=== PATIENT | male | born 1990 | race American Indian/Alaskan Native ===

== ENCOUNTER 2017-03-09 07:27 | Inpatient (IN) | payer OTHER ==
--- NOTE | 2017-03-09 08:05 | XRay Report ---
AP CHEST: HISTORY: Shortness of breath Borderline to mild cardiomegaly and mild central pulmonary venous congestion are suspected. The lungs are clear. No evidence for pneumonia, CHF or pneumothorax. The thoracic cage is intact. IMPRESSION: Borderline to mild cardiomegaly and pulmonary venous congestion.
[2017-03-09 08:07] LABS: Basophils % (Auto) 0.8 % (0.0-1.8); Eosinophils % (Auto) 1.4 % (0.0-4.3); Hematocrit 37.8 % (35.5-45.6); Hemoglobin 12.4 gm/dl (11.8-15.2); Mean Corpuscular HGB Conc 33 % (32-34); Mean Corpuscular Hemoglobin 26 pg (28-32); Mean Corpuscular Volume 80 fl (84-94); Platelet Count 167 K/mm3 (140-440); Red Blood Count 4.75 M/mm3 (3.65-5.03); Red Cell Distribution Width 16.1 % (13.2-15.2); White Blood Count 6.3 K/mm3 (4.5-11.0)
[2017-03-09] MEDS ORDERED: NORMODYNE IV ONE (08:18)
[2017-03-09 08:26] LABS: BUN/Creatinine Ratio 10.31; Calcium 8.3 mg/dL (8.4-10.2); Chloride 108.2 mmol/L (98-107); Potassium 4.6 mmol/L (3.6-5.0)
--- NOTE | 2017-03-09 08:38 | Emergency Department Report ---
HPI - General Chief Complaint: Dyspnea/Respdistress Time Seen by Provider: 03/09/17 08:23 - HPI HPI: Room 17 The patient is a 26-year-old male presenting with a chief complaint of shortness of breath. The patient states he developed shortness of breath at rest and with exertion yesterday. The patient states shortness of breath has been persistent. Patient admits to occasional cough that is occasionally productive of white sputum. His pain or fever. The patient states he has not had any of this medication for the past 4 days. Patient states she has not been on a diuretic for the past 4 years. Location: Lungs Duration: 2 days Quality: Shortness of Breath Severity: Moderate Modifying factors: [see above] Context: [see above] Mode of transportation: [not driving] ED Past Medical Hx - Past Medical History Hx Hypertension: Yes Hx Congestive Heart Failure: Yes Hx Diabetes: Yes - Surgical History Past Surgical History?: No - Family History Family history: no significant - Social History Smoking Status: Former Smoker (none 2 years) Substance Use Type: None (denies illicit drug use), Alcohol (occasional) - Medications Home Medications: Home Medications Medication Instructions Recorded Confirmed Last Taken Type Aspirin EC [Aspirin Enteric Coated 81 mg PO QDAY #30 tablet. 11/16/1303/08/17 08:00 Rx TAB] ED Review of Systems ROS: Stated complaint: CORAZON Other details as noted in HPI Comment: All other systems reviewed and negative Constitutional: denies: chills, fever Eyes: denies: eye pain, eye discharge, vision change ENT: denies: ear pain, throat pain Respiratory: cough, shortness of breath, SOB with exertion Cardiovascular: dyspnea on exertion. denies: chest pain Endocrine: no symptoms reported Gastrointestinal: denies: abdominal pain, nausea, diarrhea Genitourinary: denies: urgency, dysuria Musculoskeletal: denies: back pain, joint swelling, arthralgia Skin: denies: rash, lesions Neurological: denies: headache, weakness, paresthesias Psychiatric: denies: anxiety, depression Hematological/Lymphatic: denies: easy bleeding, easy bruising Physical Exam - Physical Exam Vital Signs: Vital Signs 03/09/17 03/09/17 03/09/17 07:33 07:34 07:45 Temperature 97.6 F Pulse Rate 88 86 84 Respiratory 28 H 18 24 Rate Blood Pressure 223/150 Blood Pressure 223/150 [Left] O2 Sat by Pulse 92 96 95 Oximetry 03/09/17 03/09/17 03/09/17 08:00 08:13 08:16 Temperature Pulse Rate 84 86 Respiratory 27 H Rate Blood Pressure 205/156 Blood Pressure 200/139 [Left] O2 Sat by Pulse 96 Oximetry Physical Exam: GENERAL: The patient is well-developed well-nourished male sitting on stretcher not appearing to be in acute distress. [] HEENT: Normocephalic. Atraumatic. Extraocular motions are intact. Patient has moist mucous membranes. NECK: Supple. Regular midline CHEST/LUNGS: Clear to auscultation. There is no respiratory distress noted. HEART/CARDIOVASCULAR: Regular. There is no tachycardia. There is no gallop rub or murmur. ABDOMEN: Abdomen is soft, nontender. Patient has normal bowel sounds. There is no abdominal distention. SKIN: There is no rash. There is trace bilateral lower extremity pitting edema. There is no diaphoresis. NEURO: The patient is awake, alert, and oriented. The patient is cooperative. The patient has normal speech MUSCULOSKELETAL: There is no evidence of acute injury. ED Course Vital Signs 03/09/17 03/09/17 03/09/17 07:33 07:34 07:45 Temperature 97.6 F Pulse Rate 88 86 84 Respiratory 28 H 18 24 Rate Blood Pressure 223/150 Blood Pressure 223/150 [Left] O2 Sat by Pulse 92 96 95 Oximetry 03/09/17 03/09/17 03/09/17 08:00 08:13 08:16 Temperature Pulse Rate 84 86 Respiratory 27 H Rate Blood Pressure 205/156 Blood Pressure 200/139 [Left] O2 Sat by Pulse 96 Oximetry ED Medical Decision Making - Lab Data Result diagrams: 03/09/17 07:56 03/09/17 07:56 Laboratory Tests 03/09/17 03/09/17 07:56 07:56 WBC 6.3 RBC 4.75 Hgb 12.4 Hct 37.8 MCV 80 L MCH 26 L MCHC 33 RDW 16.1 H Plt Count 167 Lymph % (Auto) 14.8 [place] % (Auto) 7.3 Eos % (Auto) 1.4 Baso % (Auto) 0.8 Lymph # 0.9 L [place] # 0.5 Eos # 0.1 Baso # 0.0 Seg Neutrophils % 75.7 H Seg Neutrophils # 4.8 Sodium 144 Potassium 4.6 Chloride 108.2 H Carbon Dioxide 22 Anion Gap 18 BUN 33 H Creatinine 3.2 H Estimated GFR 28 BUN/Creatinine Ratio 10.31 Glucose 180 H Calcium 8.3 L Troponin T 0.019 - EKG Data -: EKG Interpreted by Me EKG shows normal: sinus rhythm Rate: normal - EKG Data When compared to previous EKG there are: no significant change Interpretation: unchanged when compared t (11/14/2013), nonspecific ST-T wave kristen - Radiology Data Radiology results: image reviewed (chest x-ray) interpreted by me: Chest [id number]. No focal infiltrate, no pneumothorax - Differential Diagnosis CHF exacerbation, hypertensive urgency, pneumonia Critical care attestation.: If time is entered above; I have spent that time in minutes in the direct care of this critically ill patient, excluding procedure time. ED Disposition Clinical Impression: Acute exacerbation of CHF (congestive heart failure), Hypertensive urgency, Acute renal failure Disposition: 09 OP ADMIT IP TO THIS HOSP Is pt being admited?: Yes Does the pt Need Aspirin: No (renal failure) Condition: Serious Time of Disposition: 08:38 (hospitalist paged)
--- NOTE | 2017-03-09 08:44 | Admit Criteria Form ---
Admission Criteria Documentation: HEART FAILURE: COMMON COMPLICATIONS Clinical Indications for Inpatient Care ([place]/check or initial the applicable condition/criteria): Ongoing inpatient care may be indicated for heart failure with 1 or more of the following (1)(2)(3)(4)(5)(6)(7)(8): [ ]I. New-onset heart failure [ ]II. Acute cardiac ischemia causing or associated with failure [ ]III. Ongoing need for care for primary condition requiring frequent therapy adjustments because of changes in cardiac function (eg, drug dosage changes for drugs that are renally metabolized) [X]IV. Complications of heart failure, including 1 or more of the following: [ ]a) Hemodynamic instability [ ]b) Pericardial effusion [ ]c) Symptomatic pleural effusion(16) [ ]d) Hypoxemia [ ]e) Tachypnea [X]f) Dyspnea [ ]g) Syncope [ ]h) Altered mental status [ ]i) Acute renal insufficiency that is severe (reduction of more than 50% in estimated glomerular filtration rate from baseline) or progressive (reduction of more than 25% in estimated glomerular filtration rate from baseline, with creatinine continuing to rise) [ ]j) Debilitating anasarca (eg tissue breakdown with infection, inability to void due to edema)(E) (17) [ ]k) Clinically significant metabolic abnormalities due to heart failure (e.g., new-onset metabolic acidosis) Extended stay may be needed until ALL of the following are present(1)(3)(18)(41) (55): [ ]a) Hemodynamic stability [ ]b) Stable and effective diuretic regimen established (or patient on stable dialysis regimen if in chronic renal failure) [ ]c) Volume status acceptable on oral medication [ ]d) Breathing comfortably at rest [ ]e) Saturation of arterial oxygen greater than 90% or at acceptable baseline [ ]f) Pulmonary edema absent or improved [ ]g) Peripheral or sacral edema absent or improved [ ]h) Renal function stable and manageable at a lower level of care [ ]i) Complications (e.g., pleural effusion) resolved or manageable at a lower level of care [ ]j) Patient or caregiver has received written discharge instructions or educational material addressing activity level, diet, discharge medications, follow-up appointment, weight monitoring, and what to do if symptoms worsen. (56)(57)(58) The original [facility] content created by Guru Mcmahon has been revised. The portions of the content which have been revised are identified through the use of italic text or in bold, and Guru Mcmahon has neither reviewed nor approved the modified material.All other unmodified content is copyright [facility] [employer]. Please see references footnoted in the original [facility] edition 2017 Admission Criteria Met: Yes
[2017-03-09] MEDS ORDERED: DULCOLAX PR PRN (09:15)
[2017-03-09] MEDS ORDERED: TYLENOL PO PRN (09:15)
--- NOTE | 2017-03-09 09:22 | History and Physical Report ---
<PAWEL WINTER - Last Filed: 03/09/17 14:55> History of Present Illness Date of examination: 03/09/17 Date of admission: 03/09/2017 Chief complaint: Shortness of breath and productive cough History of present illness: Patient is 26 years old -[place] with past medical history systolic congestive heart failure, hypertension and diabetes mellitus type 2, who presents to the emergency department for complaining of shortness of breath with 2 days of of worsening dyspnea on light exertion and productive cough, and a 10 lb weight gain in 5 days. He has been off of his heart failure medicines for the past 4 days because he ran out off his meds. He was busy with his job and did not get time to refill his medications. Just over 1 week ago the patient was at his normal baseline state of health. Now he has had progressive worsening of his dyspnea on exertion (MONTES) to where he cannot walk across a room or talk while sitting up without becoming short of breath. He says the quality of his breathing is just like suffocating but he denies burning in his lungs or other feelings. Additionally, he has a productive cough with whitish mucus that is not bloody or bilious. He felt like he could not catch his breath this morning and got worried so he came to the ED. He continues to have 2 -3 pillow orthopnea and peripheral edema. He denies chest pain, abdominal distention, nausea or vomiting. Past History Past Medical History: diabetes (Type 2), heart failure, hypertension Past Surgical History: No surgical history Social history: denies: smoking, alcohol abuse Family history: CAD, hypertension, stroke Medications and Allergies Allergies Allergy/AdvReac Type Severity Reaction Status Date / Time lisinopril Allergy Rash Verified 03/09/17 07:34 Home Medications Medication Instructions Recorded Confirmed Last Taken Type Aspirin EC [Aspirin Enteric Coated 81 mg PO QDAY #30 tablet. 11/16/1303/08/17 08:00 Rx TAB] AtorvaSTATin [Lipitor] 40 mg PO QHS 03/09/17 03/09/17 03/05/17 History 40mg Carvedilol [Coreg] 25 mg PO BID 03/09/17 03/09/17 03/05/17 History glipiZIDE [Glucotrol] 5 mg PO QDAY 03/09/17 03/09/17 03/05/17 History 5mg hydrALAZINE 50 mg PO BID 03/09/17 03/09/17 03/05/17 History Active Meds: Active Medications Acetaminophen (Tylenol) 650 mg PO Q4H PRN PRN Reason: Pain MILD(1-3)/Fever >100.5/KATZ Aspirin (Halfprin Ec) 81 mg PO QDAY JUWAN Bisacodyl (Dulcolax) 10 mg RI QDAY PRN PRN Reason: Constipation unrelieved by MOM Glipizide (Glucotrol) 5 mg PO QDAY FORMER[facility], [facility] Heparin Sodium (Porcine) (Heparin) 5,000 unit SUB-Q Q12HR JUWAN Hydralazine HCl (Apresoline) 10 mg IV Q4HR JUWAN Review of Systems Constitutional: weight gain, no weight loss, no fever, no chills, no sweats Ears, nose, mouth and throat: no ear pain, no ear discharge, no tinnitis, no decreased hearing, no nose pain Cardiovascular: edema, shortness of breath, dyspnea on exertion, paroxysmal nocturnal dyspnea, no orthopnea, no palpitations, no rapid/irregular heart beat , no syncope, no lightheadedness Respiratory: cough, congestion, no cough with sputum, no excessive sputum, no hemoptysis, no shortness of breath Gastrointestinal: no vomiting, no diarrhea, no constipation Genitourinary Male: no dysuria, no hematuria, no flank pain Rectal: no pain, no incontinence Musculoskeletal: no neck pain, no shooting arm pain, no arm numbness/tingling, no low back pain, no shooting leg pain Integumentary: no rash, no pruritis, no redness, no sores Neurological: no paralysis, no weakness, no numbness, no tingling Psychiatric: no anxiety, no memory loss, no change in sleep habits, no insomnia , no change in appetite, no change in libido Endocrine: no cold intolerance, no heat intolerance, no polyphagia, no polydipsia, no excessive sweating Hematologic/Lymphatic: no easy bruising, no easy bleeding Allergic/Immunologic: no urticaria Exam - Constitutional Vitals: Temp Pulse Resp BP Pulse Ox 98.5 F 83 22 194/144 97 03/09/17 08:59 03/09/17 09:17 03/09/17 08:59 03/09/17 09:17 03/09/17 08:59 General appearance: Present: mild distress - EENT Eyes: Present: PERRL ENT: hearing intact - Neck Neck: Present: supple - Respiratory Respiratory effort: normal Respiratory: bilateral: rales, wheezing - Cardiovascular Heart rate: 83 Rhythm: regular - Extremities Extremity abnormal: edema, other (to bilateral extremity) Peripheral Pulses: within normal limits - Abdominal General gastrointestinal: Present: soft, non-tender Male genitourinary: Present: deferred - Rectal Rectal Exam: deferred - Integumentary Integumentary: Present: clear, warm, dry - Musculoskeletal Musculoskeletal: strength equal bilaterally - Psychiatric Psychiatric: appropriate mood/affect - Neurologic Neurologic: CNII-XII intact - Allied Health Allied health notes reviewed: nursing Results - Labs CBC & Chem 7: 03/09/17 07:56 03/09/17 12:32 Labs: Laboratory Last Values WBC 6.3 K/mm3 (4.5-11.0) 03/09/17 07:56 RBC 4.75 M/mm3 (3.65-5.03) 03/09/17 07:56 Hgb 12.4 gm/dl (11.8-15.2) 03/09/17 07:56 Hct 37.8 % (35.5-45.6) 03/09/17 07:56 MCV 80 fl (84-94) L 03/09/17 07:56 MCH 26 pg (28-32) L 03/09/17 07:56 MCHC 33 % (32-34) 03/09/17 07:56 RDW 16.1 % (13.2-15.2) H 03/09/17 07:56 Plt Count 167 K/mm3 (140-440) 03/09/17 07:56 Lymph % (Auto) 14.8 % (13.4-35.0) 03/09/17 07:56 [place] % (Auto) 7.3 % (0.0-7.3) 03/09/17 07:56 Eos % (Auto) 1.4 % (0.0-4.3) 03/09/17 07:56 Baso % (Auto) 0.8 % (0.0-1.8) 03/09/17 07:56 Lymph # 0.9 K/mm3 (1.2-5.4) L 03/09/17 07:56 [place] # 0.5 K/mm3 (0.0-0.8) 03/09/17 07:56 Eos # 0.1 K/mm3 (0.0-0.4) 03/09/17 07:56 Baso # 0.0 K/mm3 (0.0-0.1) 03/09/17 07:56 Seg Neutrophils % 75.7 % (40.0-70.0) H 03/09/17 07:56 Seg Neutrophils # 4.8 K/mm3 (1.8-7.7) 03/09/17 07:56 Sodium 144 mmol/L (137-145) 03/09/17 07:56 Potassium 4.6 mmol/L (3.6-5.0) 03/09/17 07:56 Chloride 108.2 mmol/L (98-107) H 03/09/17 07:56 Carbon Dioxide 22 mmol/L (22-30) 03/09/17 07:56 Anion Gap 18 mmol/L 03/09/17 07:56 BUN 33 mg/dL (9-20) H 03/09/17 07:56 Creatinine 3.2 mg/dL (0.8-1.5) H 03/09/17 07:56 Estimated GFR 28 ml/min 03/09/17 07:56 BUN/Creatinine Ratio 10.31 % 03/09/17 07:56 Glucose 180 mg/dL (75-100) H 03/09/17 07:56 Calcium 8.3 mg/dL (8.4-10.2) L 03/09/17 07:56 Troponin T 0.019 ng/mL (0.00-0.029) 03/09/17 07:56 Assessment and Plan Assessment and plan: ASSESSMENT/PLAN Acute on chronic systolic congestive heart failure We will admit to telemetry Patient has recent Echocardiogram with EF of 40-50% on 11/15/2013 we will leave for Cardiology if they want to obtain another one. No Lasix for now because of poor kidney function Resume beta blockers and CARLOS inhibitor's Strict I/O's and daily weights. Low-sodium/cardiac diet, fluid restriction 1200 ml daily Closely monitor electrolytes Cardiology evaluation Acute kidney injury/vasomotor nephropathy Most likely due to noncompliance with hypertension and CHF medications Bilateral renal ultrasound ordered Don't start IV fluid because of acute CHF Nephrology consulted Uncontrolled diabetes mellitus type 2 We will get A1C level Resume glipizide Accu-Chek before meals and at bedtime Sliding scale insulin/NovoLog ADA consistent carbohydrate diet Hypertension malignant Resume oral antihypertensive pills IV hydralazine for SBP>160 Closely objective blood pressure Hyperlipidemia Resume home antilipid medicine physical exercise to lose weight, low-fat diet, reducing intake of high-fat foods to improve cardiovascular diseases patient agreed up curse of action. Noncompliance Patient name complaints with medication and follow-up visits with physician Counseling done. Morbid obesity with BMI of 37.2 on adult Discussed about physical exercise to lose weight and life style changes. DVT/prophylaxis Heparin Advance Directives: Yes (Full Code) VTE prophylaxis?: Chemical Contraindication Mechanical VTE Prophylaxis: Treatment Not Indicated Plan of care discussed with patient/family: Yes <KIEL ESPINAL - Last Filed: 03/09/17 22:52> History of Present Illness Date of admission: 03/09/17 09:15 Medications and Allergies Active Meds: Active Medications Acetaminophen (Tylenol) 650 mg PO Q4H PRN PRN Reason: Pain MILD(1-3)/Fever >100.5/KATZ Last Admin: 03/09/17 16:23 Dose: 650 mg Albuterol (Proventil) 2.5 mg IH Q4H PRN PRN Reason: Shortness Of Breath Albuterol/Ipratropium (Duoneb *Not For Prn Use*) 1 ampul IH TID FOR[facility], [facility] Last Admin: 03/09/17 19:48 Dose: Not Given Amlodipine Besylate (Norvasc) 10 mg PO QDAY [facility], [facility] Last Admin: 03/09/17 11:56 Dose: 10 mg Aspirin (Halfprin Ec) 81 mg PO QDAY [facility] Last Admin: 03/09/17 10:57 Dose: 81 mg Atorvastatin Calcium (Lipitor) 40 mg PO QHS [facility] Last Admin: 03/09/17 21:47 Dose: 40 mg Bisacodyl (Dulcolax) 10 mg RI QDAY PRN PRN Reason: Constipation unrelieved by MOM Carvedilol (Coreg) 25 mg PO BID [facility] Last Admin: 03/09/17 21:47 Dose: 25 mg Clonidine HCl (Catapres) 0.2 mg PO Q12HR [facility] Dextrose (D50w (25gm)) 50 ml IV PRN PRN PRN Reason: Hypoglycemia Glipizide (Glucotrol) 5 mg PO QDAY [facility] Last Admin: 03/09/17 10:56 Dose: 5 mg Heparin Sodium (Porcine) (Heparin) 5,000 unit SUB-Q Q12HR [facility] Last Admin: 03/09/17 21:48 Dose: 5,000 unit Hydralazine HCl (Apresoline) 50 mg PO TID [facility] Last Admin: 03/09/17 21:47 Dose: 50 mg Hydralazine HCl (Apresoline) 20 mg IV Q4HR PRN PRN Reason: For SBP>170 or DBP>110 Insulin Aspart (Novolog) 0 units SUB-Q QHS [facility] PRN Reason: Protocol Last Admin: 03/09/17 21:48 Dose: 2 units Insulin Aspart (Novolog) 0 units SUB-Q AC [facility] PRN Reason: Protocol Last Admin: 03/09/17 16:32 Dose: Not Given Morphine Sulfate (Morphine) 2 mg IV Q4H PRN PRN Reason: Pain, Moderate (4-6) Ondansetron HCl (Zofran) 4 mg IM Q4H PRN PRN Reason: Nausea And Vomiting Exam - Constitutional Vitals: Temp Pulse Resp BP Pulse Ox 98.2 F 81 20 181/101 93 03/09/17 20:12 03/09/17 21:47 03/09/17 20:12 03/09/17 21:47 03/09/17 20:12 Results - Labs CBC & Chem 7: 03/09/17 07:56 03/09/17 12:32 Labs: Laboratory Last Values WBC 6.3 K/mm3 (4.5-11.0) 03/09/17 07:56 RBC 4.75 M/mm3 (3.65-5.03) 03/09/17 07:56 Hgb 12.4 gm/dl (11.8-15.2) 03/09/17 07:56 Hct 37.8 % (35.5-45.6) 03/09/17 07:56 MCV 80 fl (84-94) L 03/09/17 07:56 MCH 26 pg (28-32) L 03/09/17 07:56 MCHC 33 % (32-34) 03/09/17 07:56 RDW 16.1 % (13.2-15.2) H 03/09/17 07:56 Plt Count 167 K/mm3 (140-440) 03/09/17 07:56 Lymph % (Auto) 14.8 % (13.4-35.0) 03/09/17 07:56 [place] % (Auto) 7.3 % (0.0-7.3) 03/09/17 07:56 Eos % (Auto) 1.4 % (0.0-4.3) 03/09/17 07:56 Baso % (Auto) 0.8 % (0.0-1.8) 03/09/17 07:56 Lymph # 0.9 K/mm3 (1.2-5.4) L 03/09/17 07:56 [place] # 0.5 K/mm3 (0.0-0.8) 03/09/17 07:56 Eos # 0.1 K/mm3 (0.0-0.4) 03/09/17 07:56 Baso # 0.0 K/mm3 (0.0-0.1) 03/09/17 07:56 Seg Neutrophils % 75.7 % (40.0-70.0) H 03/09/17 07:56 Seg Neutrophils # 4.8 K/mm3 (1.8-7.7) 03/09/17 07:56 Sodium 145 mmol/L (137-145) 03/09/17 12:32 Potassium 4.5 mmol/L (3.6-5.0) 03/09/17 12:32 Chloride 107.2 mmol/L (98-107) H 03/09/17 12:32 Carbon Dioxide 26 mmol/L (22-30) 03/09/17 12:32 Anion Gap 16 mmol/L 03/09/17 12:32 BUN 32 mg/dL (9-20) H 03/09/17 12:32 Creatinine 3.1 mg/dL (0.8-1.5) H 03/09/17 12:32 Estimated GFR 29 ml/min 03/09/17 12:32 BUN/Creatinine Ratio 10.32 % 03/09/17 12:32 Glucose 95 mg/dL (75-100) 03/09/17 12:32 POC Glucose 171 (70-105) H 03/09/17 21:12 Hemoglobin A1c 7.1 % (4-6) H 03/09/17 07:56 Calcium 8.8 mg/dL (8.4-10.2) 03/09/17 12:32 Total Bilirubin 0.80 mg/dL (0.1-1.2) 03/09/17 12:32 AST 12 units/L (5-40) 03/09/17 12:32 ALT 16 units/L (7-56) 03/09/17 12:32 Alkaline Phosphatase 52 units/L (35-129) 03/09/17 12:32 Troponin T 0.019 ng/mL (0.00-0.029) 03/09/17 07:56 NT-Pro-B Natriuret Pep 55758 pg/mL (0-450) H 03/09/17 12:32 Total Protein 5.5 g/dL (6.3-8.2) L 03/09/17 12:32 Albumin 3.4 g/dL (3.9-5) L 03/09/17 12:32 Albumin/Globulin Ratio 1.6 % 03/09/17 12:32 Urine Color Straw (Yellow) 03/09/17 16:43 Urine Turbidity Clear (Clear) 03/09/17 16:43 Urine pH 6.0 (5.0-7.0) 03/09/17 16:43 Ur Specific [place] 1.009 (1.003-1.030) 03/09/17 16:43 Urine Protein >500 mg/dL (Negative) 03/09/17 16:43 Urine Glucose (UA) Neg mg/dL (Negative) 03/09/17 16:43 Urine Ketones Neg mg/dL (Negative) 03/09/17 16:43 Urine Blood Sm (Negative) 03/09/17 16:43 Urine Nitrite Neg (Negative) 03/09/17 16:43 Urine Bilirubin Neg (Negative) 03/09/17 16:43 Urine Urobilinogen < 2.0 mg/dL (<2.0) 03/09/17 16:43 Ur Leukocyte Esterase Neg (Negative) 03/09/17 16:43 Urine WBC (Auto) < 1.0 /HPF (0.0-6.0) 03/09/17 16:43 Urine RBC (Auto) 3.0 /HPF (0.0-6.0) 03/09/17 16:43 Hyaline Casts 1 /LPF 03/09/17 16:43 Urine Mucus Few /HPF 03/09/17 16:43 Urine Creatinine 54.4 mg/dL (0.1-20.0) H 03/09/17 16:43 Protein/Creatinin Ratio 3.95 03/09/17 16:43 Urine Total Protein 215 mg/dL (5-11.8) H 03/09/17 16:43 Assessment and Plan Assessment and plan: I saw and evaluated the patient. I agree with the findings and the plan of care as documented in the Nurse Practitioner's~note, with the following corrections and additions. Patient is 26 yo with acute on chronic systolic heart failure, acute kidney injury. Started on Lasix. Continue current management. Cardiology and nephrology consulted.
[2017-03-09] MEDS ORDERED: MORPHINE IV PRN (09:23)
[2017-03-09] MEDS ORDERED: ZOFRAN IM PRN (09:23)
[2017-03-09] MEDS ORDERED: PROVENTIL IH PRN (09:26)
[2017-03-09] MEDS ORDERED: D50W (25GM) Syringe IV PRN (09:50)
[2017-03-09] MEDS ORDERED: APRESOLINE IV SCH (10:00)
[2017-03-09] MEDS ORDERED: NON-FORMULARY (Hydralazine 50 MG) PO SCH (10:00)
[2017-03-09] MEDS ORDERED: APRESOLINE PO SCH (10:00)
[2017-03-09] MEDS ORDERED: APRESOLINE ONE (10:03)
[2017-03-09] MEDS: GLUCOTROL PO SCH (10:56)
[2017-03-09] MEDS: COREG PO SCH ×2 (10:57→21:47)
[2017-03-09] MEDS: HALFPRIN EC PO SCH (10:57)
[2017-03-09] MEDS: HEPARIN SUB-Q SCH ×2 (10:58→21:48)
--- NOTE | 2017-03-09 11:15 | Consultation ---
History of Present Illness Consult date: 03/09/17 Requesting physician: KIEL ESPINAL Consult reason: congestive heart failure History of present illness: The patient is a 26-year-old male with a past medical history significant for hypertension, HLP, diabetes, heart failure, obesity and noncompliance. He has been seen by our practice on prior hospitalization but has been noncompliant with outpatient follow-up. He presented with complaints of shortness of breath , orthopnea, PND and bilateral lower extremity edema for 4 days prior to admission. He denies any chest pain, palpitations, nausea, vomiting, diaphoresis, dizziness or syncope. He denies having a PCP and states that he usually obtains his antihypertensive medications from [facility]. He reports that he ran out of his antihypertensive medications 4 days ago. Admission chest x-ray showed mild cardiomegaly and pulmonary venous congestion; pro-BNP pending; serum Cr 3.2. Admission BP was noted to be 223/150. Echo done showed trace TR, moderate LVH, EF 45-50%. Past History Past Medical History: diabetes (Type 2), heart failure, hypertension, hyperlipidemia Past Surgical History: No surgical history Social history: denies: smoking, alcohol abuse Family history: CAD, diabetes, hypertension, stroke Medications and Allergies Allergies Allergy/AdvReac Type Severity Reaction Status Date / Time lisinopril Allergy Rash Verified 03/09/17 07:34 Home Medications Medication Instructions Recorded Confirmed Last Taken Type Aspirin EC [Aspirin Enteric Coated 81 mg PO QDAY #30 tablet. 11/16/1303/08/17 08:00 Rx TAB] AtorvaSTATin [Lipitor] 40 mg PO QHS 03/09/17 03/09/17 03/05/17 History 40mg Carvedilol [Coreg] 25 mg PO BID 03/09/17 03/09/17 03/05/17 History glipiZIDE [Glucotrol] 5 mg PO QDAY 03/09/17 03/09/17 03/05/17 History 5mg hydrALAZINE 50 mg PO BID 03/09/17 03/09/17 03/05/17 History Active Meds: Active Medications Acetaminophen (Tylenol) 650 mg PO Q4H PRN PRN Reason: Pain MILD(1-3)/Fever >100.5/KATZ Albuterol (Proventil) 2.5 mg IH Q4H PRN PRN Reason: Shortness Of Breath Albuterol/Ipratropium (Duoneb *Not For Prn Use*) 1 ampul IH TID [facility] Aspirin (Halfprin Ec) 81 mg PO QDAY [facility] Last Admin: 03/09/17 10:57 Dose: 81 mg Atorvastatin Calcium (Lipitor) 40 mg PO QHS [facility] Bisacodyl (Dulcolax) 10 mg IN QDAY PRN PRN Reason: Constipation unrelieved by MOM Carvedilol (Coreg) 25 mg PO BID [facility] Last Admin: 03/09/17 10:57 Dose: 25 mg Dextrose (D50w (25gm)) 50 ml IV PRN PRN PRN Reason: Hypoglycemia Glipizide (Glucotrol) 5 mg PO QDAY [facility] Last Admin: 03/09/17 10:56 Dose: 5 mg Heparin Sodium (Porcine) (Heparin) 5,000 unit SUB-Q Q12HR [facility] Last Admin: 03/09/17 10:58 Dose: 5,000 unit Hydralazine HCl (Apresoline) 10 mg IV Q4HR [facility] Last Admin: 03/09/17 10:09 Dose: 10 mg Hydralazine HCl (Apresoline) 50 mg PO BID [facility] Last Admin: 03/09/17 10:57 Dose: 50 mg Insulin Aspart (Novolog) 0 units SUB-Q QHS [facility] PRN Reason: Protocol Insulin Aspart (Novolog) 0 units SUB-Q AC [facility] PRN Reason: Protocol Morphine Sulfate (Morphine) 2 mg IV Q4H PRN PRN Reason: Pain, Moderate (4-6) Ondansetron HCl (Zofran) 4 mg IM Q4H PRN PRN Reason: Nausea And Vomiting Review of Systems Constitutional: no weight loss, no weight gain, no fever, no chills, no sweats Ears, nose, mouth and throat: no ear pain, no nose pain, no sinus pressure, no sinus pain Cardiovascular: orthopnea, edema, shortness of breath, dyspnea on exertion, paroxysmal nocturnal dyspnea, high blood pressure, leg edema, decreased exercise tolerance, no chest pain, no palpitations, no rapid/irregular heart beat, no syncope, no lightheadedness Respiratory: shortness of breath, dyspnea on exertion, no cough, no congestion, no wheezing, no pain on inspiration Gastrointestinal: no abdominal pain, no nausea, no vomiting, no diarrhea, no constipation, no change in bowel habits Genitourinary Male: no dysuria, no hematuria, no flank pain, no discharge, no urinary frequency, no urinary hesitancy Musculoskeletal: no neck stiffness, no neck pain, no shooting arm pain, no arm numbness/tingling, no low back pain, no shooting leg pain, no leg numbness/ tingling, no redness of joints Integumentary: no rash, no pruritis, no redness, no sores, no wounds Neurological: no head injury, no paralysis, no weakness, no parathesias, no numbness, no tingling, no seizures, no syncope Psychiatric: no anxiety Endocrine: no cold intolerance, no heat intolerance Hematologic/Lymphatic: no easy bruising, no easy bleeding, no lymphadenopathy Allergic/Immunologic: no urticaria, no wheezing, no persistent infections Physical Examination Vital Signs Pulse Resp Pulse Ox 88 28 H 92 03/09/17 07:33 03/09/17 07:33 03/09/17 07:33 General appearance: no acute distress HEENT: Positive: PERRL, Normocephaly, Mucus Membranes Moist Neck: Positive: neck supple, trachea midline Cardiac: Positive: Reg Rate and Rhythm, S1/S2 Lungs: Positive: clear to auscultation Neuro: Positive: Grossly Intact, Cranial Nerve 2-12 Intact Abdomen: Positive: Unremarkable, Soft, Active Bowel Sounds. Negative: Tender Skin: Positive: Clear. Negative: Rash, Wound Musculoskeletal: No Pain, Normal Range of Motion Extremities: Present: edema (trace BLE ) Results 03/09/17 07:56 03/09/17 07:56 - Imaging and Cardiology Echo: pending EKG: image reviewed EKG interpretations - Telemetry EKG Rhythm: Sinus Rhythm - EKG Sinus rhythms and dysrhythmias: sinus rhythm Chamber hypertrophy or enlargement: left ventricular hypertro Repolarization changes or abnormalities: ST or T wave suggestive of ischemia Assessment and Plan Assessment: Acute heart failure Acute renal failure Uncontrolled HTN Uncontrolled DM - Hgb A1C 7.1. HLP Abnormal EKG Obesity Noncompliance H/o lisinopril allergy Plan: Obtain echo. Optimize antihypertensive regimen - cont Coreg 25mg PO BID, initiate norvasc 10mg daily, increase hydralazine to 50mg PO TID. Recommend nephrology consultation in setting of ARF. Recommend cautious use of IVF in setting of acutely decompensated heart failure. Will not initiate diuresis at this time in setting of ARF. Repeat BMP in AM. Renal U/S pending per primary. Consider lexiscan MPI stress test prior to discharge for risk stratification. Await lipid panel. Assessment and plan reviewed with pt and pt's mother at bedside. The patient has been seen in conjunction with Dr. Sandhu agrees with the assessment and plan of care.
[2017-03-09] MEDS: NORVASC PO SCH (11:56)
[2017-03-09] MEDS: NOVOLOG SUB-Q SCH ×3 (11:56→21:48)
[2017-03-09 13:42] LABS: Albumin 3.4 g/dL (3.9-5); Albumin/Globulin Ratio 1.6 %; BUN/Creatinine Ratio 10.32; Bilirubin,Total 0.8 mg/dL (0.1-1.2); Calcium 8.8 mg/dL (8.4-10.2); Chloride 107.2 mmol/L (98-107); Potassium 4.5 mmol/L (3.6-5.0); Total Protein 5.5 g/dL (6.3-8.2)
[2017-03-09] MEDS: DUONEB *Not for PRN Use IH SCH ×2 (13:46→19:48)
[2017-03-09] MEDS ORDERED: LASIX IV ONE (14:47)
--- NOTE | 2017-03-09 14:53 | Consultation ---
History of Present Illness - Reason for Consult Consult date: 03/09/17 acute renal failure, chronic renal failure - History of Present Illness patient with h/o DM type, poorly controlled and CHF came to the ER for worsening SOB and swelling in legs, he follows with a adoption services manager in [place] who was prescribing his meds but he ran out the last few days. he mentioned his blood work 6 months did show decreased kidney function but he never saw a slab lifting supervisor. he also mentioned he takes NSAIDS 1-2 a week for KATZ. in the ED he was found to have pulm edemaon CXR with wrosening kidney function. renal consult requested for management of renal failure Past History Past Medical History: diabetes (Type 2), heart failure, hypertension, hyperlipidemia Past Surgical History: No surgical history Social history: denies: smoking, alcohol abuse Family history: CAD, diabetes, hypertension, stroke Medications and Allergies Allergies Allergy/AdvReac Type Severity Reaction Status Date / Time lisinopril Allergy Rash Verified 03/09/17 07:34 Home Medications Medication Instructions Recorded Confirmed Last Taken Type Aspirin EC [Aspirin Enteric Coated 81 mg PO QDAY #30 tablet. 11/16/1303/08/17 08:00 Rx TAB] AtorvaSTATin [Lipitor] 40 mg PO QHS 03/09/17 03/09/17 03/05/17 History 40mg Carvedilol [Coreg] 25 mg PO BID 03/09/17 03/09/17 03/05/17 History glipiZIDE [Glucotrol] 5 mg PO QDAY 03/09/17 03/09/17 03/05/17 History 5mg hydrALAZINE 50 mg PO BID 03/09/17 03/09/17 03/05/17 History Active Meds: Active Medications Acetaminophen (Tylenol) 650 mg PO Q4H PRN PRN Reason: Pain MILD(1-3)/Fever >100.5/KATZ Albuterol (Proventil) 2.5 mg IH Q4H PRN PRN Reason: Shortness Of Breath Albuterol/Ipratropium (Duoneb *Not For Prn Use*) 1 ampul IH TID [facility] Last Admin: 03/09/17 13:46 Dose: 1 ampul Amlodipine Besylate (Norvasc) 10 mg PO QDAY [facility] Last Admin: 03/09/17 11:56 Dose: 10 mg Aspirin (Halfprin Ec) 81 mg PO QDAY [facility] Last Admin: 03/09/17 10:57 Dose: 81 mg Atorvastatin Calcium (Lipitor) 40 mg PO QHS [facility] Bisacodyl (Dulcolax) 10 mg [place] QDAY PRN PRN Reason: Constipation unrelieved by MOM Carvedilol (Coreg) 25 mg PO BID [facility] Last Admin: 03/09/17 10:57 Dose: 25 mg Dextrose (D50w (25gm)) 50 ml IV PRN PRN PRN Reason: Hypoglycemia Glipizide (Glucotrol) 5 mg PO QDAY [facility] Last Admin: 03/09/17 10:56 Dose: 5 mg Heparin Sodium (Porcine) (Heparin) 5,000 unit SUB-Q Q12HR [facility] Last Admin: 03/09/17 10:58 Dose: 5,000 unit Hydralazine HCl (Apresoline) 50 mg PO TID [facility] Insulin Aspart (Novolog) 0 units SUB-Q QHS [facility] PRN Reason: Protocol Insulin Aspart (Novolog) 0 units SUB-Q [facility] PRN Reason: Protocol Last Admin: 03/09/17 11:56 Dose: Not Given Morphine Sulfate (Morphine) 2 mg IV Q4H PRN PRN Reason: Pain, Moderate (4-6) Ondansetron HCl (Zofran) 4 mg IM Q4H PRN PRN Reason: Nausea And Vomiting Review of Systems All systems: negative (SOB, swelling in legs) Exam - Vital Signs Vital signs: Vital Signs Pulse Resp Pulse Ox 88 28 H 92 03/09/17 07:33 03/09/17 07:33 03/09/17 07:33 - General Appearance General appearance: well-developed, well-nourished, obese EENT: ATNC, PERRL, mucous membranes moist Neck: Present: neck supple Respiratory: Decreased Breath Sounds Heart: regular, S1S2 Gastrointestinal: Present: normoactive bowel sounds, obese. Absent: tenderness , guarding Integumentary: no rash, warm and dry Neurologic: no focal deficit, no asterixis, alert and oriented x3 Musculoskeletal: Present: other (1+ pitting edema in BLE) Psychiatric: mood/affect appropriate, cooperative Results - Lab Results 03/09/17 07:56 03/09/17 12:32 Most recent lab results Calcium 8.8 mg/dL (8.4-10.2) 03/09/17 12:32 Assessment and Plan - Patient Problems (1) Acute exacerbation of CHF (congestive heart failure) Current Visit: Yes Status: Acute Qualifiers: Congestive heart failure type: C Plan to address problem: cardiology on board ECHO is pending will order lasix 40 mg qday and adjust as needed (2) Acute renal failure Current Visit: Yes Status: Acute Qualifiers: Acute renal failure type: A Plan to address problem: baseline Cr is unknown, possible CKD due to DM, poorly controlled and cardiorenal syndrome will check urine lytes and protein, will order secondary GN work and vasculitis if appropriate renal US is pending will start lasix as above, currently with BL pulm edema and very high BP strict I&O daily weights renal diet renally dose meds (3) Hypertensive urgency Current Visit: Yes Status: Acute Plan to address problem: on coreg, Amlodipine was added today lasix as above
[2017-03-09] MEDS: APRESOLINE PO SCH ×2 (16:25→21:47)
[2017-03-09] MEDS ORDERED: CATAPRES PO ONE (16:52)
[2017-03-09 17:16] LABS: Bilirubin,Urine NEG (Negative); Blood,Urine SM (Negative); Ketones,Urine NEG (Negative); Leukocyte Esterase,Urine NEG (Negative); Nitrite,Urine NEG (Negative); Urobilinogen,Urine < 2.0 mg/dL (<2.0); WBC,Urine < 1.0 /HPF (0.0-6.0)
[2017-03-09 17:18] LABS: Mucus,Urine FEW /HPF
[2017-03-09 17:26] LABS: Protein,Urine >500 mg/dL (Negative)
[2017-03-10] MEDS: CATAPRES PO SCH ×3 (05:27→21:33)
[2017-03-10] MEDS: APRESOLINE IV PRN (05:27)
[2017-03-10 06:37] LABS: Basophils % (Auto) 0.9 % (0.0-1.8); Hematocrit 39.5 % (35.5-45.6); Hemoglobin 12.9 gm/dl (11.8-15.2); Mean Corpuscular HGB Conc 33 % (32-34); Mean Corpuscular Hemoglobin 26 pg (28-32); Mean Corpuscular Volume 80 fl (84-94); Platelet Count 173 K/mm3 (140-440); Red Blood Count 4.92 M/mm3 (3.65-5.03); Red Cell Distribution Width 16.8 % (13.2-15.2); White Blood Count 5.8 K/mm3 (4.5-11.0)
[2017-03-10 06:50] LABS: BUN/Creatinine Ratio 10.32; Calcium 8.7 mg/dL (8.4-10.2); Chloride 106.4 mmol/L (98-107); Potassium 4.1 mmol/L (3.6-5.0)
[2017-03-10] MEDS: NOVOLOG SUB-Q SCH ×3 (07:47→17:15)
[2017-03-10] MEDS: APRESOLINE PO SCH (07:47)
[2017-03-10] MEDS: HALFPRIN EC PO SCH (09:06)
[2017-03-10] MEDS: GLUCOTROL PO SCH (09:06)
[2017-03-10] MEDS: COREG PO SCH ×2 (09:07→21:34)
[2017-03-10] MEDS: NORVASC PO SCH (09:07)
[2017-03-10] MEDS: HEPARIN SUB-Q SCH ×2 (09:19→21:35)
--- NOTE | 2017-03-10 09:27 | Ultrasound Report ---
ULTRASOUND RENAL INDICATION: Renal failure. COMPARISON: None similar. FINDINGS: Renal sonography suggests mild increased renal cortical echogenicity, more so apparent on the right. Grossly preserved contours. No hydronephrosis. RIGHT KIDNEY measures 10.7 x 6.2 x 5.7 cm with cortical thickness of 1.4 cm. LEFT KIDNEY estimated at 10.6 x 6.3 x 5.4 cm with cortical thickness of 1.4 cm. URINARY BLADDER suboptimally distended and assessed. CONCLUSION: Mild underlying medical renal disease without acute renal sonographic abnormality. Thank you for the opportunity to participate in this patient's care.
--- NOTE | 2017-03-10 09:45 | Progress Note ---
Assessment and Plan Assessment and plan: Acute on chronic systolic congestive heart failure Admitted to Telemetry. EF 35-40% . No Lasix for now because of poor kidney function Resumed beta blockers and CARLOS inhibitor's Strict I/O's and daily weights. Cardiac diet Closely monitor electrolytes Cardiology following Acute kidney injury probably on CKD May be due to ATN Bilateral renal ultrasound ordered Nephrology consulted Diabetes mellitus type 2 uncontrolled diabetes mellitus type 2 On glipizide Accu-Chek Qac and HSbefore meals and at bedtime Sliding scale insulin/NovoLog Hypertension malignant Resume oral antihypertensive pills IV hydralazine for SBP>160 Closely objective blood pressure Hyperlipidemia Resume home antilipid medicine physical exercise to lose weight, low-fat diet, reducing intake of high-fat foods to improve cardiovascular diseases patient agreed up curse of action. Medical Noncompliance I discussed with him importance of compliance. Morbid obesity with BMI of 37.2 on adult Discussed about physical exercise to lose weight and life style changes. DVT/prophylaxis Heparin Full code status History Interval history: shortness of breath, leg edema no chest pain Hospitalist Physical - Physical exam Narrative exam: Gen appearance: Not in acute distress, obese, HEENT: normocephalic, atraumatic Neck: supple, Lungs: Bilateral basal cracles, no wheezes Heart :S1 and S2 regular, no murmurs, rubs or gallop Abdomen: Soft, Non tender, non distended, bowel sounds present Extremities : Bilateral lower ext edema. no cyanosis, no clubbing, Neuro: AAO x 3, no focal neurological signs Psych:normal mood - Constitutional Vitals: Temp Pulse Resp BP Pulse Ox 97.4 F L 77 20 165/100 91 03/10/17 08:38 03/10/17 09:19 03/10/17 08:38 03/10/17 09:19 03/10/17 08:38 General appearance: Present: mild distress Results - Labs CBC & Chem 7: 03/11/17 05:30 03/11/17 06:00 Labs: Laboratory Last Values WBC 5.8 K/mm3 (4.5-11.0) 03/10/17 04:40 RBC 4.92 M/mm3 (3.65-5.03) 03/10/17 04:40 Hgb 12.9 gm/dl (11.8-15.2) 03/10/17 04:40 Hct 39.5 % (35.5-45.6) 03/10/17 04:40 MCV 80 fl (84-94) L 03/10/17 04:40 MCH 26 pg (28-32) L 03/10/17 04:40 MCHC 33 % (32-34) 03/10/17 04:40 RDW 16.8 % (13.2-15.2) H 03/10/17 04:40 Plt Count 173 K/mm3 (140-440) 03/10/17 04:40 Lymph % (Auto) 17.3 % (13.4-35.0) 03/10/17 04:40 [place] % (Auto) 8.4 % (0.0-7.3) H 03/10/17 04:40 Eos % (Auto) 2.0 % (0.0-4.3) 03/10/17 04:40 Baso % (Auto) 0.9 % (0.0-1.8) 03/10/17 04:40 Lymph # 1.0 K/mm3 (1.2-5.4) L 03/10/17 04:40 [place] # 0.5 K/mm3 (0.0-0.8) 03/10/17 04:40 Eos # 0.1 K/mm3 (0.0-0.4) 03/10/17 04:40 Baso # 0.1 K/mm3 (0.0-0.1) 03/10/17 04:40 Seg Neutrophils % 71.4 % (40.0-70.0) H 03/10/17 04:40 Seg Neutrophils # 4.1 K/mm3 (1.8-7.7) 03/10/17 04:40 Sodium 148 mmol/L (137-145) H 03/10/17 04:40 Potassium 4.1 mmol/L (3.6-5.0) 03/10/17 04:40 Chloride 106.4 mmol/L (98-107) 03/10/17 04:40 Carbon Dioxide 27 mmol/L (22-30) 03/10/17 04:40 Anion Gap 19 mmol/L 03/10/17 04:40 BUN 32 mg/dL (9-20) H 03/10/17 04:40 Creatinine 3.1 mg/dL (0.8-1.5) H 03/10/17 04:40 Estimated GFR 29 ml/min 03/10/17 04:40 BUN/Creatinine Ratio 10.32 % 03/10/17 04:40 Glucose 143 mg/dL (75-100) H 03/10/17 04:40 POC Glucose 165 (70-105) H 03/10/17 07:20 Hemoglobin A1c 7.1 % (4-6) H 03/09/17 07:56 Calcium 8.7 mg/dL (8.4-10.2) 03/10/17 04:40 Phosphorus 4.90 mg/dL (2.5-4.5) H 03/10/17 04:40 Total Bilirubin 0.80 mg/dL (0.1-1.2) 03/09/17 12:32 AST 12 units/L (5-40) 03/09/17 12:32 ALT 16 units/L (7-56) 03/09/17 12:32 Alkaline Phosphatase 52 units/L (35-129) 03/09/17 12:32 Troponin T 0.019 ng/mL (0.00-0.029) 03/09/17 07:56 NT-Pro-B Natriuret Pep 28946 pg/mL (0-450) H 03/09/17 12:32 Total Protein 5.5 g/dL (6.3-8.2) L 03/09/17 12:32 Albumin 3.4 g/dL (3.9-5) L 03/09/17 12:32 Albumin/Globulin Ratio 1.6 % 03/09/17 12:32 Triglycerides 182 mg/dL (2-149) H 03/10/17 04:40 Cholesterol 211 mg/dL (50-199) H 03/10/17 04:40 LDL Cholesterol Direct 140 mg/dL (50-130) H 03/10/17 04:40 HDL Cholesterol 35 mg/dL (40-59) L 03/10/17 04:40 Cholesterol/HDL Ratio 6.02 % 03/10/17 04:40 Urine Color Straw (Yellow) 03/09/17 16:43 Urine Turbidity Clear (Clear) 03/09/17 16:43 Urine pH 6.0 (5.0-7.0) 03/09/17 16:43 Ur Specific [place] 1.009 (1.003-1.030) 03/09/17 16:43 Urine Protein >500 mg/dL (Negative) 03/09/17 16:43 Urine Glucose (UA) Neg mg/dL (Negative) 03/09/17 16:43 Urine Ketones Neg mg/dL (Negative) 03/09/17 16:43 Urine Blood Sm (Negative) 03/09/17 16:43 Urine Nitrite Neg (Negative) 03/09/17 16:43 Urine Bilirubin Neg (Negative) 03/09/17 16:43 Urine Urobilinogen < 2.0 mg/dL (<2.0) 03/09/17 16:43 Ur Leukocyte Esterase Neg (Negative) 03/09/17 16:43 Urine WBC (Auto) < 1.0 /HPF (0.0-6.0) 03/09/17 16:43 Urine RBC (Auto) 3.0 /HPF (0.0-6.0) 03/09/17 16:43 Hyaline Casts 1 /LPF 03/09/17 16:43 Urine Mucus Few /HPF 03/09/17 16:43 Urine Creatinine 54.4 mg/dL (0.1-20.0) H 03/09/17 16:43 Protein/Creatinin Ratio 3.95 03/09/17 16:43 Urine Total Protein 215 mg/dL (5-11.8) H 03/09/17 16:43
[2017-03-10] MEDS: DUONEB *Not for PRN Use IH SCH ×3 (09:46→20:42)
--- NOTE | 2017-03-10 10:34 | Progress Note ---
Assessment and Plan Assessment: Acute combined systolic and diastolic heart failure Acute renal failure Dilated CMP LVH Uncontrolled HTN Uncontrolled DM - Hgb A1C 7.1. HLP Abnormal EKG Obesity Noncompliance H/o lisinopril allergy Plan: Echo reviewed - mild to moderate LVH, LV moderately dilated, EF 35-40%, restrictive diastolic filling pattern, LA mildly dilated, trace AR, trace MR, trace TR. Optimize antihypertensive regimen - cont Coreg 25mg PO BID, norvasc 10mg daily. Increase hydralazine to 100mg PO BID. Clonidine initiated today per primary. Nephrology consultation noted - IV lasix 40mg daily initiated. Repeat BMP in AM. Renal U/S pending. No ARB at this time in setting of ARF. Repeat BMP in AM. Plan for lexiscan MPI stress test prior to discharge for risk stratification and for further evaluation of CMP. The patient has been seen in conjunction with Dr. Sandhu agrees with the assessment and plan of care. Subjective Date of service: 03/10/17 Principal diagnosis: HF; HTN; ARF Interval history: Pt resting comfortably in bed, states SOB and BLE edema improving. BPs remain elevated. Objective Last Vital Signs Temp 97.4 F L 03/10/17 08:38 Pulse 80 03/10/17 09:56 Resp 18 03/10/17 09:56 BP 165/100 03/10/17 09:19 Pulse Ox 91 03/10/17 08:38 - Physical Examination HEENT: Positive: PERRL, Normocephaly, Mucus Membranes Moist Neck: Positive: neck supple Cardiac: Positive: Reg Rate and Rhythm, S1/S2 Lungs: Positive: Decreased Breath Sounds Neuro: Positive: Grossly Intact, Cranial Nerve 2-12 Intact Abdomen: Positive: Unremarkable, Soft, Active Bowel Sounds. Negative: Tender Skin: Positive: Clear. Negative: Rash, Wound Musculoskeletal: No Pain, Normal Range of Motion Extremities: Present: edema (trace BLE ) - Labs and Meds Cardiac Enzymes 03/09/17 Range/Units 12:32 AST 12 (5-40) units/L Lipids 03/10/17 Range/Units 04:40 Triglycerides 182 H (2-149) mg/dL Cholesterol 211 H (50-199) mg/dL HDL Cholesterol 35 L (40-59) mg/dL Cholesterol/HDL Ratio 6.02 % CBC 03/10/17 Range/Units 04:40 WBC 5.8 (4.5-11.0) K/mm3 RBC 4.92 (3.65-5.03) M/mm3 Hgb 12.9 (11.8-15.2) gm/dl Hct 39.5 (35.5-45.6) % Plt Count 173 (140-440) K/mm3 Lymph # 1.0 L (1.2-5.4) K/mm3 [place] # 0.5 (0.0-0.8) K/mm3 Eos # 0.1 (0.0-0.4) K/mm3 Baso # 0.1 (0.0-0.1) K/mm3 Comprehensive Metabolic Panel 03/09/17 03/10/17 Range/Units 12:32 04:40 Sodium 145 148 H (137-145) mmol/L Potassium 4.5 4.1 (3.6-5.0) mmol/L Chloride 107.2 H 106.4 (98-107) mmol/L Carbon Dioxide 26 27 (22-30) mmol/L BUN 32 H 32 H (9-20) mg/dL Creatinine 3.1 H 3.1 H (0.8-1.5) mg/dL Glucose 95 143 H (75-100) mg/dL Calcium 8.8 8.7 (8.4-10.2) mg/dL AST 12 (5-40) units/L ALT 16 (7-56) units/L Alkaline Phosphatase 52 (35-129) units/L Total Protein 5.5 L (6.3-8.2) g/dL Albumin 3.4 L (3.9-5) g/dL - Imaging and Cardiology EKG: image reviewed Echo: report reviewed - Telemetry EKG Rhythm: Sinus Rhythm - EKG Sinus rhythms and dysrhythmias: sinus rhythm Chamber hypertrophy or enlargement: left ventricular hypertro Repolarization changes or abnormalities: ST or T wave suggestive of ischemia
[2017-03-10] MEDS ORDERED: APRESOLINE PO ONE (11:30)
--- NOTE | 2017-03-10 13:15 | Progress Note ---
Assessment and Plan - Patient Problems (1) Acute exacerbation of CHF (congestive heart failure) Current Visit: Yes Status: Acute Qualifiers: Congestive heart failure type: C Plan to address problem: EF 35-40% As per Cardiology (2) Acute renal failure Current Visit: Yes Status: Acute Qualifiers: Acute renal failure type: A Plan to address problem: Renal function reviewed. Serum creatinine remains at 3.1 Possible Chronic Kidney Disease due to DM given proteinuria and cardiorenal syndrome Renal ultrasound- Medical renal disease noted. No Hydronephrosis Will obtain GN labs-MERRY, ANCA, Complements, anti-GBM, SPEP, ASO, RF, HIV, Hep B surface antigen Monitor I&O Obtain daily weights Renal diet Renally dose meds (3) Hypertensive heart disease Current Visit: No Status: Acute Qualifiers: Heart failure presence: H Plan to address problem: Blood pressures are stable today. Continue on anti-hypertensive agents Subjective Date of service: 03/10/17 Principal diagnosis: HF; HTN; ARF Interval history: Patient seen sitting up in bed undergoing a breathing treatment. States he is doing ok Objective - Vital Signs Vital signs: Vital Signs - 12hr 03/10/17 03/10/17 03/10/17 05:13 05:27 07:47 Temperature 97.6 F Pulse Rate 86 86 80 Pulse Rate [ Anterior Bilateral Throughout] Respiratory 20 Rate Respiratory Rate [Anterior Bilateral Throughout] Blood Pressure 173/104 173/104 173/98 O2 Sat by Pulse 94 Oximetry 03/10/17 03/10/17 03/10/17 08:38 09:07 09:19 Temperature 97.4 F L Pulse Rate 77 77 77 Pulse Rate [ Anterior Bilateral Throughout] Respiratory 20 Rate Respiratory Rate [Anterior Bilateral Throughout] Blood Pressure 165/100 165/100 165/100 O2 Sat by Pulse 91 Oximetry 03/10/17 03/10/17 03/10/17 09:46 09:56 11:52 Temperature 98.7 F Pulse Rate 73 Pulse Rate [ 82 80 Anterior Bilateral Throughout] Respiratory 20 Rate Respiratory 18 18 Rate [Anterior Bilateral Throughout] Blood Pressure 147/87 O2 Sat by Pulse 99 Oximetry 03/10/17 12:03 Temperature Pulse Rate 73 Pulse Rate [ Anterior Bilateral Throughout] Respiratory Rate Respiratory Rate [Anterior Bilateral Throughout] Blood Pressure 147/87 O2 Sat by Pulse Oximetry - General Appearance General appearance: well-developed, well-nourished, appears stated age, fatigue EENT: ATNC, PERRL Neck: no JVD, supple Respiratory: Present: Decreased Breath Sounds Cardiology: regular, S1S2 Gastrointestinal: normoactive bowel sounds Integumentary: warm and dry Neurologic: alert and oriented x3 Musculoskeletal: other (No edema noted) - Lab 03/10/17 04:40 03/10/17 04:40 Most recent lab results Calcium 8.7 mg/dL (8.4-10.2) 03/10/17 04:40 Phosphorus 4.90 mg/dL (2.5-4.5) H 03/10/17 04:40 Urine Creatinine 54.4 mg/dL (0.1-20.0) H 03/09/17 16:43 Urine Total Protein 215 mg/dL (5-11.8) H 03/09/17 16:43
[2017-03-10] MEDS ORDERED: APRESOLINE PO SCH ×2 (22:00)
[2017-03-11] MEDS: NOVOLOG SUB-Q SCH ×5 (00:13→21:07)
[2017-03-11] MEDS: APRESOLINE IV PRN (04:44)
[2017-03-11 05:46] LABS: Basophils % (Auto) 0.7 % (0.0-1.8); Eosinophils % (Auto) 1.6 % (0.0-4.3); Hematocrit 40.4 % (35.5-45.6); Hemoglobin 13.2 gm/dl (11.8-15.2); Mean Corpuscular HGB Conc 33 % (32-34); Mean Corpuscular Hemoglobin 26 pg (28-32); Mean Corpuscular Volume 80 fl (84-94); Platelet Count 186 K/mm3 (140-440); Red Blood Count 5.06 M/mm3 (3.65-5.03); Red Cell Distribution Width 16.5 % (13.2-15.2)
[2017-03-11 06:02] LABS: BUN/Creatinine Ratio 10.64; Calcium 8.7 mg/dL (8.4-10.2); Chloride 106.5 mmol/L (98-107); Phosphorous 4.7 mg/dL (2.5-4.5); Potassium 4.5 mmol/L (3.6-5.0)
[2017-03-11 06:35] LABS: HIV-1 Antigen p24 Non React (Non React); HIVR-1/2 Ab Non React (Non React)
[2017-03-11] MEDS: DUONEB *Not for PRN Use IH SCH ×3 (07:45→22:10)
--- NOTE | 2017-03-11 09:43 | Progress Note ---
Assessment and Plan - Patient Problems (1) Acute exacerbation of CHF (congestive heart failure) Current Visit: Yes Status: Acute Qualifiers: Congestive heart failure type: C Plan to address problem: EF 35-40% Secheduled for stress test tomorrow As per Cardiology (2) Acute renal failure Current Visit: Yes Status: Acute Qualifiers: Acute renal failure type: A Plan to address problem: Renal function reviewed. Serum creatinine remains at 3.1 Likely has Chronic Kidney Disease secondary to Cardiorenal syndrome and Diabetic Nephropathy given Proteinuria Renal ultrasound- Medical renal disease noted. No Hydronephrosis GN work-up in progress-MERRY, ANCA, Complements, anti-GBM, SPEP, ASO are pending RF <10, HIV and Hep B surface antigen are negative Monitor I&O's Obtain daily weights Renal diet Renally dose meds Not cleared for discharge until GN work-up is complete (3) Hypertensive heart disease Current Visit: No Status: Acute Qualifiers: Heart failure presence: H Plan to address problem: Continue on anti-hypertensive agents and adjust as needed Subjective Date of service: 03/11/17 Principal diagnosis: HF; HTN; ARF Interval history: Patient seen sitting up in bed using his cell phone. Wants to go home Objective - Vital Signs Vital signs: Vital Signs - 12hr 03/10/17 03/11/17 03/11/17 23:00 00:08 03:40 Temperature 97.2 F L 97.6 F Pulse Rate 80 83 80 Respiratory 18 20 Rate Blood Pressure 141/74 171/95 O2 Sat by Pulse 95 99 Oximetry 03/11/17 03/11/17 03/11/17 08:47 08:48 08:49 Temperature 997.6 F H Pulse Rate 89 80 Respiratory 18 Rate Blood Pressure 164/94 O2 Sat by Pulse 96 98 Oximetry - General Appearance General appearance: well-developed, well-nourished, appears stated age EENT: ATNC, PERRL, hearing intact, vision intact Neck: no JVD, supple Respiratory: Present: Clear to Ascultation Cardiology: regular, S1S2 Gastrointestinal: normoactive bowel sounds Integumentary: warm and dry Neurologic: alert and oriented x3 Musculoskeletal: joint swelling Psychiatric: cooperative - Lab 03/11/17 05:30 03/11/17 06:00 Most recent lab results Calcium 8.7 mg/dL (8.4-10.2) 03/11/17 06:00 Phosphorus 4.70 mg/dL (2.5-4.5) H 03/11/17 06:00 Urine Creatinine 54.4 mg/dL (0.1-20.0) H 03/09/17 16:43 Urine Total Protein 215 mg/dL (5-11.8) H 03/09/17 16:43
[2017-03-11] MEDS: HEPARIN SUB-Q SCH ×2 (10:34→21:05)
--- NOTE | 2017-03-11 10:38 | Progress Note ---
Assessment and Plan Acute combined systolic and diastolic heart failure Acute renal failure Dilated CMP LVH Uncontrolled HTN Uncontrolled DM - Hgb A1C 7.1. HLP Abnormal EKG Obesity Noncompliance H/o lisinopril allergy rec: increase hydralzine for better bp control and stress in am for sob and lv dsyfunction, discuss with mother and patient in detail about importance to followup and compliance with meds. Subjective Date of service: 03/11/17 Principal diagnosis: HF; HTN; ARF Interval history: pt denies any sob like on admission but has not walked outside room Objective Vital Signs Temp Pulse Pulse Resp Resp BP Pulse Ox 03/11/17 08:49 98 03/11/17 08:48 80 03/11/17 08:47 997.6 F H 89 18 164/94 96 03/11/17 03:40 97.6 F 80 20 171/95 99 03/11/17 00:08 97.2 F L 83 18 141/74 95 03/10/17 23:00 80 03/10/17 21:06 93 H 18 03/10/17 20:46 89 16 03/10/17 19:47 98.1 F 86 20 156/92 94 03/10/17 16:45 97.9 F 79 16 171/88 92 03/10/17 15:47 98 03/10/17 15:36 82 03/10/17 13:50 85 18 03/10/17 13:40 82 18 03/10/17 12:03 73 147/87 03/10/17 11:52 98.7 F 73 20 147/87 99 - Physical Examination General: No Apparent Distress HEENT: Positive: PERRL, Normocephaly, Mucus Membranes Moist Neck: Positive: neck supple Cardiac: Positive: Reg Rate and Rhythm Lungs: Positive: clear to auscultation Neuro: Positive: Grossly Intact, Cranial Nerve 2-12 Intact Abdomen: Positive: Unremarkable, Soft, Active Bowel Sounds. Negative: Tender Skin: Positive: Clear. Negative: Rash, Wound Musculoskeletal: No Pain, Normal Range of Motion Extremities: Absent: edema - Labs and Meds CBC 03/11/17 Range/Units 05:30 WBC 6.0 (4.5-11.0) K/mm3 RBC 5.06 H (3.65-5.03) M/mm3 Hgb 13.2 (11.8-15.2) gm/dl Hct 40.4 (35.5-45.6) % Plt Count 186 (140-440) K/mm3 Lymph # 0.8 L (1.2-5.4) K/mm3 [place] # 0.5 (0.0-0.8) K/mm3 Eos # 0.1 (0.0-0.4) K/mm3 Baso # 0.0 (0.0-0.1) K/mm3 Comprehensive Metabolic Panel 03/11/17 Range/Units 06:00 Sodium 145 (137-145) mmol/L Potassium 4.5 (3.6-5.0) mmol/L Chloride 106.5 (98-107) mmol/L Carbon Dioxide 27 (22-30) mmol/L BUN 33 H (9-20) mg/dL Creatinine 3.1 H (0.8-1.5) mg/dL Glucose 153 H (75-100) mg/dL Calcium 8.7 (8.4-10.2) mg/dL - Imaging and Cardiology EKG: image reviewed Echo: report reviewed (ef 35-40%) - Telemetry EKG Rhythm: Sinus Rhythm - EKG Sinus rhythms and dysrhythmias: sinus rhythm Chamber hypertrophy or enlargement: left ventricular hypertro Repolarization changes or abnormalities: ST or T wave suggestive of ischemia
--- NOTE | 2017-03-11 10:56 | Progress Note ---
Assessment and Plan Assessment and plan: Acute on chronic systolic congestive heart failure Admitted to Telemetry. EF 35-40% . No Lasix for now because of poor kidney function Resumed beta blockers and CARLOS inhibitor's Strict I/O's and daily weights. Cardiac diet Closely monitor electrolytes Cardiology following For stress test tomorrow. Acute kidney injury on CKD Due to ATN Bilateral renal ultrasound showed medical renal disease. Nephrology following Diabetes mellitus type 2 uncontrolled diabetes mellitus type 2 On glipizide Accu-Chek Qac and HSbefore meals and at bedtime Sliding scale insulin/NovoLog Hypertension malignant Resume oral antihypertensive pills IV hydralazine for SBP>160 Closely objective blood pressure Hyperlipidemia Resume home antilipid medicine physical exercise to lose weight, low-fat diet, reducing intake of high-fat foods to improve cardiovascular diseases patient agreed up curse of action. Medical Noncompliance I discussed with him importance of compliance. Morbid obesity with BMI of 37.2 on adult Discussed about physical exercise and diet to lose weight and life style changes. DVT/prophylaxis Heparin Full code status History Interval history: Less shortness of breath, Less leg edema no chest pain Hospitalist Physical - Physical exam Narrative exam: Gen appearance: Not in acute distress, obese, HEENT: normocephalic, atraumatic Neck: supple, Lungs: Bibasilar crackles,no wheezes Heart :S1 and S2 regular, no murmurs, rubs or gallop Abdomen: Soft, Non tender, non distended, bowel sounds present Extremities : Trace bilateral lower leg edema. no cyanosis, no clubbing, Neuro: AAO x 3, no focal neurological signs Psych:normal mood - Constitutional Vitals: Temp Pulse Resp BP Pulse Ox 997.6 F H 80 18 164/94 98 03/11/17 08:47 03/11/17 08:48 03/11/17 08:47 03/11/17 08:47 03/11/17 08:49 General appearance: Present: mild distress Results - Labs CBC & Chem 7: 03/12/17 05:25 03/12/17 05:25 Labs: Laboratory Last Values WBC 6.0 K/mm3 (4.5-11.0) 03/11/17 05:30 RBC 5.06 M/mm3 (3.65-5.03) H 03/11/17 05:30 Hgb 13.2 gm/dl (11.8-15.2) 03/11/17 05:30 Hct 40.4 % (35.5-45.6) 03/11/17 05:30 MCV 80 fl (84-94) L 03/11/17 05:30 MCH 26 pg (28-32) L 03/11/17 05:30 MCHC 33 % (32-34) 03/11/17 05:30 RDW 16.5 % (13.2-15.2) H 03/11/17 05:30 Plt Count 186 K/mm3 (140-440) 03/11/17 05:30 Lymph % (Auto) 12.6 % (13.4-35.0) L 03/11/17 05:30 [place] % (Auto) 7.8 % (0.0-7.3) H 03/11/17 05:30 Eos % (Auto) 1.6 % (0.0-4.3) 03/11/17 05:30 Baso % (Auto) 0.7 % (0.0-1.8) 03/11/17 05:30 Lymph # 0.8 K/mm3 (1.2-5.4) L 03/11/17 05:30 [place] # 0.5 K/mm3 (0.0-0.8) 03/11/17 05:30 Eos # 0.1 K/mm3 (0.0-0.4) 03/11/17 05:30 Baso # 0.0 K/mm3 (0.0-0.1) 03/11/17 05:30 Seg Neutrophils % 77.3 % (40.0-70.0) H 03/11/17 05:30 Seg Neutrophils # 4.6 K/mm3 (1.8-7.7) 03/11/17 05:30 Sodium 145 mmol/L (137-145) 03/11/17 06:00 Potassium 4.5 mmol/L (3.6-5.0) 03/11/17 06:00 Chloride 106.5 mmol/L (98-107) 03/11/17 06:00 Carbon Dioxide 27 mmol/L (22-30) 03/11/17 06:00 Anion Gap 16 mmol/L 03/11/17 06:00 BUN 33 mg/dL (9-20) H 03/11/17 06:00 Creatinine 3.1 mg/dL (0.8-1.5) H 03/11/17 06:00 Estimated GFR 29 ml/min 03/11/17 06:00 BUN/Creatinine Ratio 10.64 % 03/11/17 06:00 Glucose 153 mg/dL (75-100) H 03/11/17 06:00 POC Glucose 139 (70-105) H 03/10/17 21:56 Hemoglobin A1c 7.1 % (4-6) H 03/09/17 07:56 Calcium 8.7 mg/dL (8.4-10.2) 03/11/17 06:00 Phosphorus 4.70 mg/dL (2.5-4.5) H 03/11/17 06:00 Total Bilirubin 0.80 mg/dL (0.1-1.2) 03/09/17 12:32 AST 12 units/L (5-40) 03/09/17 12:32 ALT 16 units/L (7-56) 03/09/17 12:32 Alkaline Phosphatase 52 units/L (35-129) 03/09/17 12:32 Troponin T 0.019 ng/mL (0.00-0.029) 03/09/17 07:56 NT-Pro-B Natriuret Pep 30004 pg/mL (0-450) H 03/09/17 12:32 Total Protein 5.5 g/dL (6.3-8.2) L 03/09/17 12:32 Albumin 3.4 g/dL (3.9-5) L 03/09/17 12:32 Albumin/Globulin Ratio 1.6 % 03/09/17 12:32 Triglycerides 182 mg/dL (2-149) H 03/10/17 04:40 Cholesterol 211 mg/dL (50-199) H 03/10/17 04:40 LDL Cholesterol Direct 140 mg/dL (50-130) H 03/10/17 04:40 HDL Cholesterol 35 mg/dL (40-59) L 03/10/17 04:40 Cholesterol/HDL Ratio 6.02 % 03/10/17 04:40 Urine Color Straw (Yellow) 03/09/17 16:43 Urine Turbidity Clear (Clear) 03/09/17 16:43 Urine pH 6.0 (5.0-7.0) 03/09/17 16:43 Ur Specific [place] 1.009 (1.003-1.030) 03/09/17 16:43 Urine Protein >500 mg/dL (Negative) 03/09/17 16:43 Urine Glucose (UA) Neg mg/dL (Negative) 03/09/17 16:43 Urine Ketones Neg mg/dL (Negative) 03/09/17 16:43 Urine Blood Sm (Negative) 03/09/17 16:43 Urine Nitrite Neg (Negative) 03/09/17 16:43 Urine Bilirubin Neg (Negative) 03/09/17 16:43 Urine Urobilinogen < 2.0 mg/dL (<2.0) 03/09/17 16:43 Ur Leukocyte Esterase Neg (Negative) 03/09/17 16:43 Urine WBC (Auto) < 1.0 /HPF (0.0-6.0) 03/09/17 16:43 Urine RBC (Auto) 3.0 /HPF (0.0-6.0) 03/09/17 16:43 Hyaline Casts 1 /LPF 03/09/17 16:43 Urine Mucus Few /HPF 03/09/17 16:43 Urine Creatinine 54.4 mg/dL (0.1-20.0) H 03/09/17 16:43 Protein/Creatinin Ratio 3.95 03/09/17 16:43 Urine Total Protein 215 mg/dL (5-11.8) H 03/09/17 16:43 Rheumatoid Factor < 10 IU/ml (0-13) 03/11/17 04:00 Hep Bs Antigen Non-reactive (Negative) 03/11/17 04:00 HIV 1&2 Antibody Rapid Non react (Non React) 03/11/17 05:43 HIV P24 Antigen Non react (Non React) 03/11/17 05:43
[2017-03-11] MEDS: CATAPRES PO SCH ×2 (11:14→21:05)
[2017-03-11] MEDS: NORVASC PO SCH (11:14)
[2017-03-11] MEDS: HALFPRIN EC PO SCH (11:14)
[2017-03-11] MEDS: GLUCOTROL PO SCH (11:14)
[2017-03-11] MEDS: COREG PO SCH ×2 (11:15→21:06)
[2017-03-11] MEDS: APRESOLINE PO SCH ×2 (14:36→21:05)
[2017-03-12 06:00] LABS: Basophils % (Auto) 1.1 % (0.0-1.8); Eosinophils % (Auto) 1.8 % (0.0-4.3); Hematocrit 38.7 % (35.5-45.6); Hemoglobin 12.5 gm/dl (11.8-15.2); Mean Corpuscular HGB Conc 32 % (32-34); Mean Corpuscular Volume 80 fl (84-94); Platelet Count 192 K/mm3 (140-440); Red Blood Count 4.85 M/mm3 (3.65-5.03); Red Cell Distribution Width 16.6 % (13.2-15.2); White Blood Count 6.3 K/mm3 (4.5-11.0)
[2017-03-12 06:02] LABS: Mean Corpuscular Hemoglobin 26 pg (28-32)
[2017-03-12 06:24] LABS: BUN/Creatinine Ratio 11.81; Calcium 8.8 mg/dL (8.4-10.2); Chloride 105.1 mmol/L (98-107); Phosphorous 4.8 mg/dL (2.5-4.5)
[2017-03-12] MEDS ORDERED: LEXISCAN IV ONE ×2 (08:05→08:14)
--- NOTE | 2017-03-12 09:57 | Progress Note ---
Assessment and Plan (1) Acute exacerbation of CHF (congestive heart failure) Current Visit: Yes Status: Acute Qualifiers: Congestive heart failure type: C Plan to address problem: EF 35-40% As per Cardiology (2) Acute renal failure Current Visit: Yes Status: Acute Qualifiers: Acute renal failure type: A Plan to address problem: will start Losartan 25 mg qday for poorly controlled BP, proteinuria and CHF Likely has Chronic Kidney Disease secondary to Cardiorenal syndrome and Diabetic Nephropathy given Proteinuria Renal ultrasound- Medical renal disease noted. No Hydronephrosis GN work-up in progress-MERRY, ANCA, Complements, anti-GBM, SPEP, ASO are pending RF <10, HIV and Hep B surface antigen are negative Monitor I&O's Obtain daily weights Renal diet Renally dose meds (3) Hypertensive heart disease Current Visit: No Status: Acute Qualifiers: Heart failure presence: H Plan to address problem: Continue on anti-hypertensive agents and adjust as needed Subjective Date of service: 03/12/17 Principal diagnosis: HF; HTN; ARF Interval history: no overnight events Objective - Vital Signs Vital signs: Vital Signs - 12hr 03/12/17 03/12/17 03/12/17 00:00 04:00 09:06 Temperature 97.6 F 97.5 F L 98.4 F Pulse Rate 80 87 82 Respiratory 20 20 18 Rate Blood Pressure 149/86 152/84 160/89 O2 Sat by Pulse 98 97 94 Oximetry - General Appearance General appearance: well-developed, well-nourished, obese EENT: ATNC, PERRL, mucous membranes moist Neck: no JVD, no carotid bruit Respiratory: Present: Clear to Ascultation Cardiology: regular, S1S2 Gastrointestinal: normoactive bowel sounds, no tenderness, no distended, no guarding Integumentary: no rash, warm and dry Neurologic: no focal deficit, no asterixis, alert and oriented x3 Musculoskeletal: other (no edema in BLE) Psychiatric: mood/affect appropriate, cooperative - Lab 03/12/17 05:25 03/12/17 05:25 Most recent lab results Calcium 8.8 mg/dL (8.4-10.2) 03/12/17 05:25 Phosphorus 4.80 mg/dL (2.5-4.5) H 03/12/17 05:25 Urine Creatinine 54.4 mg/dL (0.1-20.0) H 03/09/17 16:43 Urine Total Protein 215 mg/dL (5-11.8) H 03/09/17 16:43
[2017-03-12] MEDS: DUONEB *Not for PRN Use IH SCH ×3 (10:35→20:24)
--- NOTE | 2017-03-12 10:45 | Progress Note ---
Assessment and Plan Assessment and plan: Acute on chronic systolic congestive heart failure he feels much better EF 35-40% . No Lasix for now because of poor kidney function Resumed beta blockers and CARLOS inhibitor's Strict I/O's and daily weights. Closely monitor electrolytes Cardiology following Stress test negative. I discussed with cardiology. Acute kidney injury on CKD Due to ATN Bilateral renal ultrasound showed medical renal disease. Nephrology following Awaiting labs to r/o glomerular disease Diabetes mellitus type 2 uncontrolled diabetes mellitus type 2 On glipizide Accu-Chek Qac and HSbefore meals and at bedtime Sliding scale insulin/NovoLog Hypertension malignant Resumed oral antihypertensive pills IV hydralazine for SBP>160 Closely objective blood pressure Hyperlipidemia Resume home antilipid medicine physical exercise to lose weight, low-fat diet, reducing intake of high-fat foods to improve cardiovascular diseases patient agreed up curse of action. Medical Noncompliance I discussed with him importance of compliance. Morbid obesity with BMI of 45.1 Discussed about physical exercise and diet to lose weight and life style changes. DVT/prophylaxis Heparin Full code status Possible d/c home tomorrow. History Interval history: No more shortness of breath no chest pain Hospitalist Physical - Physical exam Narrative exam: Gen appearance: Not in acute distress,morbidly obese, HEENT: normocephalic, atraumatic Neck: supple,no JVD Lungs: Lungs clear to auscultartition, Megan comes in Bibasilar crackles,no wheezes Heart :S1 and S2 regular, no murmurs, rubs or gallop Abdomen: Soft, Non tender, non distended, bowel sounds present Extremities : Trace bilateral lower leg edema. no cyanosis, no clubbing, Neuro: AAO x 3, no focal neurological signs Psych:normal mood - Constitutional Vitals: Temp Pulse Resp BP Pulse Ox 98.4 F 82 18 160/89 94 03/12/17 09:06 03/12/17 09:06 03/12/17 09:06 03/12/17 09:06 03/12/17 09:06 Results - Labs CBC & Chem 7: 03/12/17 05:25 03/12/17 05:25 Labs: Laboratory Last Values WBC 6.3 K/mm3 (4.5-11.0) 03/12/17 05:25 RBC 4.85 M/mm3 (3.65-5.03) 03/12/17 05:25 Hgb 12.5 gm/dl (11.8-15.2) 03/12/17 05:25 Hct 38.7 % (35.5-45.6) 03/12/17 05:25 MCV 80 fl (84-94) L 03/12/17 05:25 MCH 26 pg (28-32) L 03/12/17 05:25 MCHC 32 % (32-34) 03/12/17 05:25 RDW 16.6 % (13.2-15.2) H 03/12/17 05:25 Plt Count 192 K/mm3 (140-440) 03/12/17 05:25 Lymph % (Auto) 16.5 % (13.4-35.0) 03/12/17 05:25 [place] % (Auto) 8.5 % (0.0-7.3) H 03/12/17 05:25 Eos % (Auto) 1.8 % (0.0-4.3) 03/12/17 05:25 Baso % (Auto) 1.1 % (0.0-1.8) 03/12/17 05:25 Lymph # 1.0 K/mm3 (1.2-5.4) L 03/12/17 05:25 [place] # 0.5 K/mm3 (0.0-0.8) 03/12/17 05:25 Eos # 0.1 K/mm3 (0.0-0.4) 03/12/17 05:25 Baso # 0.1 K/mm3 (0.0-0.1) 03/12/17 05:25 Seg Neutrophils % 72.1 % (40.0-70.0) H 03/12/17 05:25 Seg Neutrophils # 4.5 K/mm3 (1.8-7.7) 03/12/17 05:25 Sodium 143 mmol/L (137-145) 03/12/17 05:25 Potassium 4.0 mmol/L (3.6-5.0) 03/12/17 05:25 Chloride 105.1 mmol/L (98-107) 03/12/17 05:25 Carbon Dioxide 23 mmol/L (22-30) 03/12/17 05:25 Anion Gap 19 mmol/L 03/12/17 05:25 BUN 39 mg/dL (9-20) H 03/12/17 05:25 Creatinine 3.3 mg/dL (0.8-1.5) H 03/12/17 05:25 Estimated GFR 27 ml/min 03/12/17 05:25 BUN/Creatinine Ratio 11.81 % 03/12/17 05:25 Glucose 170 mg/dL (75-100) H 03/12/17 05:25 POC Glucose 154 (70-105) H 03/11/17 19:42 Hemoglobin A1c 7.1 % (4-6) H 03/09/17 07:56 Calcium 8.8 mg/dL (8.4-10.2) 03/12/17 05:25 Phosphorus 4.80 mg/dL (2.5-4.5) H 03/12/17 05:25 Total Bilirubin 0.80 mg/dL (0.1-1.2) 03/09/17 12:32 AST 12 units/L (5-40) 03/09/17 12:32 ALT 16 units/L (7-56) 03/09/17 12:32 Alkaline Phosphatase 52 units/L (35-129) 03/09/17 12:32 Troponin T 0.019 ng/mL (0.00-0.029) 03/09/17 07:56 NT-Pro-B Natriuret Pep 99326 pg/mL (0-450) H 03/09/17 12:32 Total Protein 5.5 g/dL (6.3-8.2) L 03/09/17 12:32 Albumin 3.4 g/dL (3.9-5) L 03/09/17 12:32 Albumin/Globulin Ratio 1.6 % 03/09/17 12:32 Triglycerides 182 mg/dL (2-149) H 03/10/17 04:40 Cholesterol 211 mg/dL (50-199) H 03/10/17 04:40 LDL Cholesterol Direct 140 mg/dL (50-130) H 03/10/17 04:40 HDL Cholesterol 35 mg/dL (40-59) L 03/10/17 04:40 Cholesterol/HDL Ratio 6.02 % 03/10/17 04:40 Urine Color Straw (Yellow) 03/09/17 16:43 Urine Turbidity Clear (Clear) 03/09/17 16:43 Urine pH 6.0 (5.0-7.0) 03/09/17 16:43 Ur Specific [place] 1.009 (1.003-1.030) 03/09/17 16:43 Urine Protein >500 mg/dL (Negative) 03/09/17 16:43 Urine Glucose (UA) Neg mg/dL (Negative) 03/09/17 16:43 Urine Ketones Neg mg/dL (Negative) 03/09/17 16:43 Urine Blood Sm (Negative) 03/09/17 16:43 Urine Nitrite Neg (Negative) 03/09/17 16:43 Urine Bilirubin Neg (Negative) 03/09/17 16:43 Urine Urobilinogen < 2.0 mg/dL (<2.0) 03/09/17 16:43 Ur Leukocyte Esterase Neg (Negative) 03/09/17 16:43 Urine WBC (Auto) < 1.0 /HPF (0.0-6.0) 03/09/17 16:43 Urine RBC (Auto) 3.0 /HPF (0.0-6.0) 03/09/17 16:43 Hyaline Casts 1 /LPF 03/09/17 16:43 Urine Mucus Few /HPF 03/09/17 16:43 Urine Creatinine 54.4 mg/dL (0.1-20.0) H 03/09/17 16:43 Protein/Creatinin Ratio 3.95 03/09/17 16:43 Urine Total Protein 215 mg/dL (5-11.8) H 03/09/17 16:43 Rheumatoid Factor < 10 IU/ml (0-13) 03/11/17 04:00 Hep Bs Antigen Non-reactive (Negative) 03/11/17 04:00 HIV 1&2 Antibody Rapid Non react (Non React) 03/11/17 05:43 HIV P24 Antigen Non react (Non React) 03/11/17 05:43
--- NOTE | 2017-03-12 10:50 | Progress Note ---
Assessment and Plan Acute combined systolic and diastolic heart failure Acute renal failure Dilated CMP LVH Uncontrolled HTN Uncontrolled DM - Hgb A1C 7.1. HLP Abnormal EKG Obesity Noncompliance H/o lisinopril allergy rec: Patient stress test shows no serious ischemia, EF 30% probable nonischemic cardiomyopathy continue current BP medications stressed to the patient to ambulate which she did not do and patient is stable from a cardiovascular point of view needs better compliance of medication and follow-up discussed this with the patient patient's mother Subjective Date of service: 03/12/17 Principal diagnosis: HF; HTN; ARF Interval history: Patient denies any shortness of breath but has not walked outside the room Objective Vital Signs Temp Pulse Pulse Resp Resp BP Pulse Ox 03/12/17 09:06 98.4 F 82 18 160/89 94 03/12/17 04:00 97.5 F L 87 20 152/84 97 03/12/17 00:00 97.6 F 80 20 149/86 98 03/11/17 20:42 18 03/11/17 19:42 97.6 F 84 22 163/96 100 03/11/17 17:31 97.5 F L 91 H 18 157/75 99 03/11/17 16:00 91 H 03/11/17 13:10 85 20 03/11/17 12:59 83 20 03/11/17 11:15 81 169/100 03/11/17 11:14 169/100 - Physical Examination General: No Apparent Distress HEENT: Positive: PERRL, Normocephaly, Mucus Membranes Moist Neck: Positive: neck supple Cardiac: Positive: Reg Rate and Rhythm Lungs: Positive: clear to auscultation Neuro: Positive: Grossly Intact, Cranial Nerve 2-12 Intact Abdomen: Positive: Unremarkable, Soft, Active Bowel Sounds. Negative: Tender Skin: Positive: Clear. Negative: Rash, Wound Musculoskeletal: No Pain, Normal Range of Motion Extremities: Absent: edema - Labs and Meds CBC 03/12/17 Range/Units 05:25 WBC 6.3 (4.5-11.0) K/mm3 RBC 4.85 (3.65-5.03) M/mm3 Hgb 12.5 (11.8-15.2) gm/dl Hct 38.7 (35.5-45.6) % Plt Count 192 (140-440) K/mm3 Lymph # 1.0 L (1.2-5.4) K/mm3 [place] # 0.5 (0.0-0.8) K/mm3 Eos # 0.1 (0.0-0.4) K/mm3 Baso # 0.1 (0.0-0.1) K/mm3 Comprehensive Metabolic Panel 03/12/17 Range/Units 05:25 Sodium 143 (137-145) mmol/L Potassium 4.0 (3.6-5.0) mmol/L Chloride 105.1 (98-107) mmol/L Carbon Dioxide 23 (22-30) mmol/L BUN 39 H (9-20) mg/dL Creatinine 3.3 H (0.8-1.5) mg/dL Glucose 170 H (75-100) mg/dL Calcium 8.8 (8.4-10.2) mg/dL - Imaging and Cardiology EKG: image reviewed Nuclear stress test: report reviewed (ef 30% dilated LV cavity with normal myocardial perfusion suggestive of nonischemic cardio myopathy) Echo: report reviewed (ef 35-40%) - Telemetry EKG Rhythm: Sinus Rhythm - EKG Sinus rhythms and dysrhythmias: sinus rhythm Chamber hypertrophy or enlargement: left ventricular hypertro Repolarization changes or abnormalities: ST or T wave suggestive of ischemia
--- NOTE | 2017-03-12 11:55 | Treadmill Report ---
PROCEDURE: Nuclear cardiac perfusion study done. READING PHYSICIAN: Blas Dumont MD IMAGING PROTOCOL: The patient received 10 mCi of Technetium 99m Tetrofosmin for resting image and 28 mCi of Technetium 99m Tetrofosmin for stress imaging. The imaging for the whole procedure was completed 30-90 minutes following the initial injection of Technetium 99m tetrofosmin. The SPECT imaging in the 180 degree arc was performed in the right anterior oblique projection. Computerized reconstruction of the images was performed for analysis. IMAGING RESULTS: Cavity is dilated both at stress and rest. Distribution radionuclide is normal in the anterior, inferior, septal, and apical regions. Gated SPECT, EF 30% with moderate global hypokinesis. The patient infused Lexiscan with no EKG changes. SUMMARY: 1. Negative Lexiscan EKG. 2. No significant stress-induced ischemia noted. 3. There is a dilated LV, in both stress and rest with normal perfusion in the anterior, inferior, septal, and apical regions with moderate global hypokinesis, EF 30%, suggest a nonischemic cardiomyopathy. [facility]# [id number] FORREST/JULES
[2017-03-12] MEDS: NOVOLOG SUB-Q SCH ×3 (14:06→22:00)
[2017-03-12] MEDS: APRESOLINE PO SCH ×3 (14:08→20:40)
[2017-03-12] MEDS: CATAPRES PO SCH ×2 (14:09→22:15)
[2017-03-12] MEDS: NORVASC PO SCH (14:10)
[2017-03-12] MEDS: COZAAR PO SCH (14:10)
[2017-03-12] MEDS: COREG PO SCH ×2 (14:10→22:14)
[2017-03-12] MEDS: GLUCOTROL PO SCH (14:11)
[2017-03-12] MEDS: HALFPRIN EC PO SCH (14:11)
[2017-03-12] MEDS: HEPARIN SUB-Q SCH ×2 (17:06→22:16)
[2017-03-13 07:56] LABS: Basophils % (Auto) 1.1 % (0.0-1.8); Eosinophils % (Auto) 1.6 % (0.0-4.3); Hematocrit 41.2 % (35.5-45.6); Mean Corpuscular HGB Conc 32 % (32-34); Mean Corpuscular Volume 81 fl (84-94); Platelet Count 216 K/mm3 (140-440); Red Blood Count 5.09 M/mm3 (3.65-5.03); Red Cell Distribution Width 17.1 % (13.2-15.2); White Blood Count 6.6 K/mm3 (4.5-11.0)
[2017-03-13 08:07] LABS: BUN/Creatinine Ratio 11.21; Calcium 8.7 mg/dL (8.4-10.2); Chloride 104.5 mmol/L (98-107); Phosphorous 4.6 mg/dL (2.5-4.5); Potassium 4.5 mmol/L (3.6-5.0)
[2017-03-13 08:20] LABS: Mean Corpuscular Hemoglobin 26 pg (28-32)
--- NOTE | 2017-03-13 08:43 | Event Note ---
Date: 03/13/17 Follow up in our [place] office with Jennifer Urias NP, on 03/28/2017 @ 1:00PM. Todd ADKINS NP / DR. ESTRADA
[2017-03-13] MEDS: NOVOLOG SUB-Q SCH (09:08)
[2017-03-13] MEDS: HALFPRIN EC PO SCH (09:09)
[2017-03-13] MEDS: CATAPRES PO SCH (09:10)
[2017-03-13] MEDS: APRESOLINE PO SCH (09:10)
[2017-03-13] MEDS: COREG PO SCH (09:11)
[2017-03-13] MEDS: NORVASC PO SCH (09:11)
[2017-03-13] MEDS: GLUCOTROL PO SCH (09:12)
[2017-03-13] MEDS: COZAAR PO SCH (09:12)
[2017-03-13] MEDS: HEPARIN SUB-Q SCH (09:15)
--- NOTE | 2017-03-13 12:26 | Progress Note ---
Assessment and Plan (1) Acute exacerbation of CHF (congestive heart failure) Current Visit: Yes Status: Acute Qualifiers: Congestive heart failure type: C Plan to address problem: EF 35-40% As per Cardiology (2) Acute renal failure Current Visit: Yes Status: Acute Qualifiers: Acute renal failure type: A Plan to address problem: Cr remained stable post losartan initiation can be discharged from renal standpoint, will follow up with rest of the serology results upon discharge, he will follow with us within 1-2 weeks Monitor I&O's Obtain daily weights Renal diet Renally dose meds (3) Hypertensive heart disease Current Visit: No Status: Acute Qualifiers: Heart failure presence: H Plan to address problem: Continue on anti-hypertensive agents and adjust as needed Subjective Date of service: 03/13/17 Principal diagnosis: HF; HTN; ARF Interval history: denies overnight events Objective - Vital Signs Vital signs: Vital Signs - 12hr 03/13/17 03/13/17 04:00 08:00 Temperature 97.9 F 98.3 F Pulse Rate 86 82 Respiratory 18 22 Rate Blood Pressure 154/81 167/106 O2 Sat by Pulse 94 98 Oximetry - General Appearance General appearance: well-developed, well-nourished, obese EENT: ATNC, PERRL, mucous membranes moist Neck: no JVD, no carotid bruit Respiratory: Present: Clear to Ascultation. Absent: [place], [place] Cardiology: regular, S1S2 Gastrointestinal: normoactive bowel sounds, no tenderness, no distended, no masses Integumentary: no rash, warm and dry Neurologic: no focal deficit, no asterixis, alert and oriented x3 Musculoskeletal: deferred Psychiatric: mood/affect appropriate, cooperative - Lab 03/13/17 07:30 03/13/17 07:30 Most recent lab results Calcium 8.7 mg/dL (8.4-10.2) 03/13/17 07:30 Phosphorus 4.60 mg/dL (2.5-4.5) H 03/13/17 07:30 Urine Creatinine 54.4 mg/dL (0.1-20.0) H 03/09/17 16:43 Urine Total Protein 215 mg/dL (5-11.8) H 03/09/17 16:43
--- NOTE | 2017-03-13 13:21 | Discharge Summary ---
Providers - Providers Date of Admission: 03/09/17 09:15 Date of discharge: 03/13/17 Attending physician: KIEL ESPINAL 03/09/17 09:43 Consult to Cardiology [CONS] Routine Consulting Provider: DEBORAH STRAUSS Reason For Exam: CHF exacerbation 03/09/17 11:29 Consult to Physician [CONS] Routine Consulting Provider: CHILO ROSARIO Reason For Exam: ARF Place consult to:: yes Notified:: yes Phone number called:: yes Primary care physician: BALLET MASTER/MISTRESS Hospitalization Condition: Fair Disposition: [id number] TO HOME OR SELFCARE - Discharge Diagnoses (1) Acute on chronic combined systolic and diastolic CHF (congestive heart failure) Status: Acute Core Measure Documentation - Palliative Care Palliative Care/ Comfort Measures: Not Applicable - Core Measures Any of the following diagnoses?: heart failure - Heart Failure Discharge Requirements CARLOS/ARB for LVSD if EF <40%: Yes Beta ousmane at discharge: Yes Exam - Constitutional Vitals: Temp Pulse Resp BP Pulse Ox 98.3 F 82 22 167/106 98 03/13/17 08:00 03/13/17 08:00 03/13/17 08:00 03/13/17 08:00 03/13/17 08:00 Plan Activity: advance as tolerated Diet: low fat, low cholesterol, low salt, diabetic, renal Additional Instructions: 1.Follow up with PCP in 1 week. 2.Follow up with Dr. Rosario in 1 week. 3.Follow up with Dr. Todd Sandhu, cardiology in 1 week Follow up with: PRIMARY CARE, [Primary Care Provider] - 3-5 Days Prescriptions: amLODIPine [Norvasc] 10 mg PO QDAY #30 tablet Aspirin EC [Aspirin Enteric Coated TAB] 81 mg PO QDAY #30 tablet. AtorvaSTATin [Lipitor] 40 mg PO QHS #30 tablet Carvedilol [Coreg] 25 mg PO BID #60 tablet cloNIDine [Catapres] 0.2 mg PO Q12HR #60 tablet glipiZIDE [Glucotrol] 5 mg PO QDAY #30 tablet hydrALAZINE [Apresoline TAB] 100 mg PO TID #90 tab Losartan [Cozaar] 25 mg PO QDAY #30 tablet
[2017-03-13 13:43] VITALS: BP 148/85
[2017-03-13 20:41] LABS: Myeloperoxidase Antibody <1.0 AI (<1.0)
[2017-03-14 21:14] LABS: Albumin 3.1 g/dL (3.8-4.8); Gamma Globulin 0.6 g/dL (0.8-1.7)
== END 2017-03-13 16:55 | disposition home or self-care (01) | DRG 291 ==
LOC: ED 07:27 → 4A 09:15
PROVIDERS: ADMIT Internal Medicine; ATTEND Internal Medicine
DX: I13.0 Hypertensive heart and chronic kidney disease with heart failure and stage 1 through stage 4 chronic kidney disease, or unspecified chronic kidney disease (principal); N17.0 Acute kidney failure with tubular necrosis; I50.41 Acute combined systolic (congestive) and diastolic (congestive) heart failure; Z68.42 Body mass index [BMI] 45.0-49.9, adult; I16.0 Hypertensive urgency; I42.0 Dilated cardiomyopathy; I50.9 Heart failure, unspecified; E78.5 Hyperlipidemia, unspecified; E66.01 Morbid (severe) obesity due to excess calories; E11.9 Type 2 diabetes mellitus without complications; Z87.891 Personal history of nicotine dependence; Z82.49 Family history of ischemic heart disease and other diseases of the circulatory system; Z91.19 Patient's noncompliance with other medical treatment and regimen; Z86.73 Personal history of transient ischemic attack (TIA), and cerebral infarction without residual deficits; Z88.8 Allergy status to other drugs, medicaments and biological substances
CPT/HCPCS: 36415; 71010; 76770; 78452; 80048; 80053; 80061; 81001; 82570; 82962; 83036; 83520; 83880; 84100; 84156; 84165; 84484; 85025; 86021; 86038; 86060; 86160; 86162; 86225; 86618; 86706; 87806; 93005; 93010; 93017; 93306; 94640; 96374; 96375; A9270-GY; A9502; J0360; J1644; J1815; J1940; J2785

== ENCOUNTER 2019-03-14 19:22 | Observation (INO) | payer OTHER ==
--- NOTE | 2019-03-14 20:01 | Event Note ---
ED Screening Note Date of service: 03/14/19 Time: 19:57 ED Screening Note: 28 y o male presents with chest tightness and body tingling x 1 day PMH: DM,CHF, ESRD This initial assessment/diagnostic orders/clinical plan/treatment(s) is/are subject to change based on patients health status, clinical progression and re- assessment by fellow clinical providers in the ED. Further treatment and workup at subsequent clinical providers discretion. Patient/guardian urged not to elope from the ED as their condition may be serious if not clinically assessed and managed. Initial orders include: cbc,cmp,ua
[2019-03-14 20:26] LABS: Basophils # (Auto) 0.1 K/mm3 (0.0-0.1); Basophils % (Auto) 1.5 % (0.0-1.8); Eosinophils # (Auto) 0.1 K/mm3 (0.0-0.4); Eosinophils % (Auto) 1.6 % (0.0-4.3); Hematocrit 33.9 % (35.5-45.6); Hemoglobin 11.3 gm/dl (11.8-15.2); Lymphocytes # (Auto) 0.8 K/mm3 (1.2-5.4); Lymphocytes % (Auto) 17.6 % (13.4-35.0); Mean Corpuscular HGB Conc 33 % (32-34); Mean Corpuscular Volume 82 fl (84-94); Monocytes # (Auto) 0.5 K/mm3 (0.0-0.8); Monocytes % (Auto) 10.1 % (0.0-7.3); Platelet Count 161 K/mm3 (140-440); Red Blood Count 4.15 M/mm3 (3.65-5.03); Red Cell Distribution Width 15.2 % (13.2-15.2)
[2019-03-14 20:35] LABS: Creatine Kinase MB 3.1 ng/mL (0.0-4.0)
[2019-03-14 20:44] LABS: Albumin 4.1 g/dL (3.9-5); Calcium 8.7 mg/dL (8.4-10.2)
[2019-03-14 20:59] LABS: Bilirubin,Urine NEG (Negative); Blood,Urine NEG (Negative); Color,Urine Yellow (Yellow); Granular Casts,Urine 2 /LPF; Mucus,Urine FEW /HPF; Urobilinogen,Urine < 2.0 mg/dL (<2.0)
[2019-03-14 21:02] LABS: Protein,Urine >500 mg/dL (Negative)
--- NOTE | 2019-03-14 21:16 | XRay Report ---
CHEST PA AND LATERAL VIEWS INDICATION: cp. COMPARISON: 03/09/2017 FINDINGS: Support devices: None Heart: Upper limits of normal, unchanged Lungs/Pleura: No acute pulmonary or pleural findings. IMPRESSION: 1. No acute disease. Signer Name: Adal Deng MD Signed: 03/14/2019 9:11 PM Workstation Name: [id number]
--- NOTE | 2019-03-14 22:41 | Emergency Department Report ---
ED Chest Pain HPI - General Chief Complaint: Dyspnea/Respdistress Stated Complaint: CORAZON Time Seen by Provider: 03/14/19 19:56 Source: patient Mode of arrival: Ambulatory Limitations: No Limitations - History of Present Illness Initial Comments: 28-year-old male, history of diabetes, CHF, chronic kidney disease, presents to ED with chest pain, onset today. Patient states pain felt like a tightness in the center of his chest. 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 Patient denies shortness of breath, nausea and vomiting. Patient states he was recently discharged from [facility] 5 days ago in after being diagnosed with hyperkalemia. Patient states he is scheduled to begin dialysis soon. States has appt to have fistula placed next month. MD Complaint: chest pain -: This afternoon Onset: during exertion Pain Location: substernal Pain Radiation: none Severity: moderate Severity scale (0 -10): 7 Quality: tightness Consistency: now resolved Improves With: nothing Worsens With: nothing re: denies: nausea, vomting, diaphoresis, dyspnea Other Symptoms: denies: cough, fever, syncope - Related Data Home Medications Medication Instructions Recorded Confirmed Last Taken Carvedilol [Coreg] 50 mg PO BID 03/14/19 03/14/19 Unknown Previous Rx's Medication Instructions Recorded Last Taken Type Aspirin EC [Halfprin EC] 81 mg PO QDAY #30 tablet. 03/13/17 Unknown Rx AtorvaSTATin [Lipitor] 40 mg PO QHS #30 tablet 03/13/17 Unknown Rx amLODIPine [Norvasc] 10 mg PO QDAY #30 tablet 03/13/17 Unknown Rx cloNIDine [Catapres] 0.2 mg PO Q12HR #60 tablet 03/13/17 Unknown Rx glipiZIDE [Glucotrol] 5 mg PO QDAY #30 tablet 03/13/17 Unknown Rx hydrALAZINE [Apresoline TAB] 100 mg PO TID #90 tab 03/13/17 Unknown Rx Allergies Allergy/AdvReac Type Severity Reaction Status Date / Time lisinopril Allergy Rash Verified 03/09/17 07:34 Heart Score - HEART Score History: Moderately suspicious EKG: Non-specific Age: < 45 Risk factors: > 3 risk factors or hx of atherosclerotic disease Troponin: 1-3x normal limit HEART Score: 5 - Critical Actions Critical Actions: 4-6 pts:12-16.6% risk of adverse cardiac event. Should be admitted ED Review of Systems ROS: Stated complaint: CORAZON Other details as noted in HPI Comment: All other systems reviewed and negative Respiratory: denies: shortness of breath Cardiovascular: chest pain Neurological: paresthesias ED Past Medical Hx - Past Medical History Previous Medical History?: Yes Hx Hypertension: Yes Hx Congestive Heart Failure: Yes Hx Diabetes: Yes Hx Renal Disease: Yes (Stage 5) Hx Asthma: No - Surgical History Past Surgical History?: No - Social History Smoking Status: Never Smoker Substance Use Type: None - Medications Home Medications: Home Medications Medication Instructions Recorded Confirmed Last Taken Type Aspirin EC [Halfprin EC] 81 mg PO QDAY #30 tablet. 03/13/17 03/14/19 Unknown Rx AtorvaSTATin [Lipitor] 40 mg PO QHS #30 tablet 03/13/17 03/14/19 Unknown Rx amLODIPine [Norvasc] 10 mg PO QDAY #30 tablet 03/13/17 03/14/19 Unknown Rx cloNIDine [Catapres] 0.2 mg PO Q12HR #60 tablet 03/13/17 03/14/19 Unknown Rx glipiZIDE [Glucotrol] 5 mg PO QDAY #30 tablet 03/13/17 03/14/19 Unknown Rx hydrALAZINE [Apresoline TAB] 100 mg PO TID #90 tab 03/13/17 03/14/19 Unknown Rx Carvedilol [Coreg] 50 mg PO BID 03/14/19 03/14/19 Unknown History ED Physical Exam - General Limitations: No Limitations General appearance: alert, in no apparent distress - Head Head exam: Present: atraumatic, normocephalic - Eye Eye exam: Present: normal appearance - ENT ENT exam: Present: mucous membranes moist - Neck Neck exam: Present: normal inspection - Respiratory Respiratory exam: Present: normal lung sounds bilaterally. Absent: respiratory distress - Cardiovascular Cardiovascular Exam: Present: regular rate, normal rhythm - GI/Abdominal GI/Abdominal exam: Absent: distended - Extremities Exam Extremities exam: Present: normal inspection - Neurological Exam Neurological exam: Present: alert, oriented X3 - Psychiatric Psychiatric exam: Present: normal affect, normal mood - Skin Skin exam: Present: warm, dry, intact, normal color. Absent: rash ED Course Vital Signs 03/14/19 03/14/19 03/14/19 19:56 21:15 21:21 Temperature 98.1 F 97.9 F Pulse Rate 80 66 71 Respiratory 18 14 15 Rate Blood Pressure 167/96 152/81 Blood Pressure 152/81 [Left] O2 Sat by Pulse 98 98 97 Oximetry 03/14/19 03/14/19 03/14/19 22:25 22:30 23:01 Temperature Pulse Rate 72 67 70 Respiratory 15 17 16 Rate Blood Pressure 148/83 143/80 143/80 Blood Pressure [Left] O2 Sat by Pulse 97 97 97 Oximetry 03/14/19 03/15/19 03/15/19 23:31 00:00 00:09 Temperature Pulse Rate 68 71 67 Respiratory 17 18 14 Rate Blood Pressure 143/80 151/94 151/94 Blood Pressure [Left] O2 Sat by Pulse 98 98 97 Oximetry 03/15/19 03/15/19 00:30 01:00 Temperature Pulse Rate 72 71 Respiratory 16 14 Rate Blood Pressure 143/87 154/81 Blood Pressure [Left] O2 Sat by Pulse 95 96 Oximetry ED Medical Decision Making - Lab Data Result diagrams: 03/14/19 20:03 03/14/19 20:03 - EKG Data -: EKG Interpreted by Ar EKG shows normal: sinus rhythm, axis, intervals, QRS complexes Rate: normal - EKG Data When compared to previous EKG there are: no significant change Interpretation: other (inferolateral T wave inversions) - Radiology Data Radiology results: report reviewed, image reviewed - Medical Decision Making 28 yo M w/ CHF, CKD, DM 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 EKG shows no ST elevations or depressions. No chest pain currently. Trop mil dly elevated at 0.09, but could be due to renal insufficiency. D-dimer normal. Pt reports has not had a stress test in approx 2 yrs. Will admit to hospitalist for further evaluation. - Differential Diagnosis ACS, chest wall pain, pulm edema, plerual effusion, PE Critical care attestation.: If time is entered above; I have spent that time in minutes in the direct care of this critically ill patient, excluding procedure time. ED Disposition Clinical Impression: Acute chest pain Disposition: OP ADMIT IP TO THIS HOSP Is pt being admited?: Yes Condition: Stable Time of Disposition: 22:58
[2019-03-14] MEDS ORDERED: ASPIRIN PO ONE (22:57)
--- NOTE | 2019-03-14 23:25 | History and Physical Report ---
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 He stated he just started practice and he was not physically exerting himself. He states that he's been having chronic weakness, fatigue tingling all over and muscle spasms. The pain in his chest he describes as paresthesia-type feeling. He literally describes it as when your leg falls asleep you have tingling and a funny feeling after.. He denies any shortness of breath nausea vomiting or palpitations. The patient was recently seen at [facility] where he was treated for hypokalemia and discharged 5 days ago. The patient also has chronic kidney disease stage V, he is planned to begin dialysis soon. He scheduled for AV graft placement next week. Patient denied dysuria or suprapubic tenderness Past Medical History: diabetes (Type 2), heart failure combined, EF 30, hypertension Past Surgical History: No surgical history Social history: denies: smoking, alcohol abuse Family history: CAD, hypertension, stroke Medications and Allergies Allergies Allergy/AdvReac Type Severity Reaction Status Date / Time lisinopril Allergy Rash Verified 03/09/17 07:34 Home Medications Medication Instructions Recorded Confirmed Last Taken Type Aspirin EC [Halfprin EC] 81 mg PO QDAY #30 tablet. 03/13/17 03/14/19 Unknown Rx AtorvaSTATin [Lipitor] 40 mg PO QHS #30 tablet 03/13/17 03/14/19 Unknown Rx amLODIPine [Norvasc] 10 mg PO QDAY #30 tablet 03/13/17 03/14/19 Unknown Rx cloNIDine [Catapres] 0.2 mg PO Q12HR #60 tablet 03/13/17 03/14/19 Unknown Rx glipiZIDE [Glucotrol] 5 mg PO QDAY #30 tablet 03/13/17 03/14/19 Unknown Rx hydrALAZINE [Apresoline TAB] 100 mg PO TID #90 tab 03/13/17 03/14/19 Unknown Rx Carvedilol [Coreg] 50 mg PO BID 03/14/19 03/14/19 Unknown History Review of Systems All systems: negative Constitutional: fatigue Ears, nose, mouth and throat: no ear pain Cardiovascular: chest pain, no orthopnea, no palpitations, no edema Respiratory: no cough Gastrointestinal: no abdominal pain Genitourinary Male: no dysuria Rectal: no pain Musculoskeletal: no neck stiffness Integumentary: no rash Neurological: no head injury Psychiatric: no anxiety Endocrine: no cold intolerance Hematologic/Lymphatic: no easy bruising Allergic/Immunologic: no urticaria Exam - Constitutional Vitals: Temp Pulse Resp BP Pulse Ox 97.9 F 70 16 143/80 97 03/14/19 21:21 03/14/19 23:01 03/14/19 23:01 03/14/19 23:01 03/14/19 23:01 General appearance: Present: mild distress, well-nourished - EENT Eyes: Present: PERRL ENT: hearing intact, clear oral mucosa - Neck Neck: Present: supple, normal ROM - Respiratory Respiratory effort: normal Respiratory: bilateral: CTA - Cardiovascular Heart Sounds: Present: S1 & S2. Absent: rub, click - Extremities Extremities: pulses symmetrical, No edema Peripheral Pulses: within normal limits - Abdominal General gastrointestinal: Present: soft, non-tender, non-distended, normal bowel sounds Male genitourinary: Present: normal - Integumentary Integumentary: Present: clear, warm, dry - Musculoskeletal Musculoskeletal: gait normal, strength equal bilaterally - Psychiatric Psychiatric: appropriate mood/affect, intact judgment & insight - Neurologic Neurologic: CNII-XII intact, moves all extremities Results - Labs CBC & Chem 7: 03/14/19 20:03 03/14/19 20:03 Labs: Laboratory Last Values WBC 4.5 K/mm3 (4.5-11.0) 03/14/19 20:03 RBC 4.15 M/mm3 (3.65-5.03) 03/14/19 20:03 Hgb 11.3 gm/dl (11.8-15.2) L 03/14/19 20:03 Hct 33.9 % (35.5-45.6) L 03/14/19 20:03 MCV 82 fl (84-94) L 03/14/19 20:03 MCH 27 pg (28-32) L 03/14/19 20:03 MCHC 33 % (32-34) 03/14/19 20:03 RDW 15.2 % (13.2-15.2) 03/14/19 20:03 Plt Count 161 K/mm3 (140-440) 03/14/19 20:03 Lymph % (Auto) 17.6 % (13.4-35.0) 03/14/19 20:03 Alfalfa % (Auto) 10.1 % (0.0-7.3) H 03/14/19 20:03 Eos % (Auto) 1.6 % (0.0-4.3) 03/14/19 20:03 Baso % (Auto) 1.5 % (0.0-1.8) 03/14/19 20:03 Lymph # 0.8 K/mm3 (1.2-5.4) L 03/14/19 20:03 [place] # 0.5 K/mm3 (0.0-0.8) 03/14/19 20:03 Eos # 0.1 K/mm3 (0.0-0.4) 03/14/19 20:03 Baso # 0.1 K/mm3 (0.0-0.1) 03/14/19 20:03 Seg Neutrophils % 69.2 % (40.0-70.0) 03/14/19 20:03 Seg Neutrophils # 3.1 K/mm3 (1.8-7.7) 03/14/19 20:03 138.17 ng/mlDDU (0-234) 03/14/19 22:38 Sodium 141 mmol/L (137-145) 03/14/19 20:03 Potassium 4.0 mmol/L (3.6-5.0) 03/14/19 20:03 Chloride 98.9 mmol/L (98-107) 03/14/19 20:03 Carbon Dioxide 24 mmol/L (22-30) 03/14/19 20:03 22 mmol/L 03/14/19 20:03 BUN 76 mg/dL (9-20) H 03/14/19 20:03 9.7 mg/dL (0.8-1.5) H 03/14/19 20:03 Estimated GFR 8 ml/min 03/14/19 20:03 8 % 03/14/19 20:03 Glucose 71 mg/dL (75-100) L 03/14/19 20:03 Lactic Acid 0.60 mmol/L (0.7-2.0) L 03/14/19 20:03 Calcium 8.7 mg/dL (8.4-10.2) 03/14/19 20:03 0.80 mg/dL (0.1-1.2) 03/14/19 20:03 AST 11 units/L (5-40) 03/14/19 20:03 ALT 8 units/L (7-56) 03/14/19 20:03 78 units/L (35-129) 03/14/19 20:03 252 units/L (55-170) H 03/14/19 20:03 CK-MB (CK-2) 3.1 ng/mL (0.0-4.0) 03/14/19 20:03 CK-MB (CK-2) Rel Index 1.2 (0-4) 03/14/19 20:03 0.097 ng/mL (0.00-0.029) H 03/14/19 20:03 7.3 g/dL (6.3-8.2) 03/14/19 20:03 4.1 g/dL (3.9-5) 03/14/19 20:03 1.3 % 03/14/19 20:03 Yellow (Yellow) 03/14/19 20:18 Clear (Clear) 03/14/19 20:18 6.0 (5.0-7.0) 03/14/19 20:18 Ur Specific [place] 1.013 (1.003-1.030) 03/14/19 20:18 >500 mg/dL (Negative) 03/14/19 20:18 Neg mg/dL (Negative) 03/14/19 20:18 Neg mg/dL (Negative) 03/14/19 20:18 Neg (Negative) 03/14/19 20:18 Neg (Negative) 03/14/19 20:18 Neg (Negative) 03/14/19 20:18 < 2.0 mg/dL (<2.0) 03/14/19 20:18 Ur Leukocyte Esterase Sm (Negative) 03/14/19 20:18 26.0 /HPF (0.0-6.0) H 03/14/19 20:18 4.0 /HPF (0.0-6.0) 03/14/19 20:18 U Epithel Cells (Auto) 1.0 /HPF (0-13.0) 03/14/19 20:18 Granular Casts 2 /LPF 03/14/19 20:18 Few /HPF 03/14/19 20:18 Assessment and Plan Assessment and plan: 28-year-old male with combined heart failure 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 EKG shows bigeminy Labs reveal very mild anemia with hemoglobin of 11, even of 76 and creatinine of 9.7. Potassium is normal at 4. CK is 252. Troponin is 0.097. UA shows 26 cells cxr neg atypical Chest pain has not had a stress test in years, echo and stress test -[facility] heart consult -his symptoms could likely be due to uremia, d dimer neg Combined heart failure EF of 30%, hypertension, diabetes -Continue home meds, SSI, appears euvolemic UA reviewed, patient has 26 cells which is most likely sediments given advanced renal failure. He has no symptoms of UTI, continue to monitor CKD stage 5, K is wnl, rising BUN, planned to AVG and HD next week, does not appear to need emergent HD, his documentation consultant are at -[facility] Morbid obesity Preventative health counseling performed for 17 minutes dvt ppx heparin sq VTE prophylaxis?: Chemical
[2019-03-14] MEDS ORDERED: D50W (25GM) Syringe IV PRN (23:36)
[2019-03-14] MEDS ORDERED: ZOFRAN IV PRN (23:36)
[2019-03-14] MEDS ORDERED: MORPHINE IV PRN (23:36)
[2019-03-14] MEDS ORDERED: TYLENOL PO PRN (23:36)
[2019-03-14] MEDS ORDERED: SODIUM CHLORIDE FLUSH SYRINGE 10 ML IV PRN (23:36)
[2019-03-15] MEDS ORDERED: APRESOLINE IV PRN (02:45)
[2019-03-15] MEDS ORDERED: LEXISCAN IV ONE ×2 (06:56→07:04)
[2019-03-15] MEDS ORDERED: GLUCOTROL PO SCH (08:00)
[2019-03-15] MEDS: APRESOLINE PO SCH ×2 (08:00→13:20)
[2019-03-15] MEDS: HumaLOG SUB-Q SCH ×2 (08:00→12:00)
[2019-03-15] MEDS ORDERED: HALFPRIN EC PO SCH (10:00)
[2019-03-15] MEDS ORDERED: SODIUM CHLORIDE FLUSH SYRINGE 10 ML IV SCH (10:00)
[2019-03-15] MEDS ORDERED: COREG PO SCH (10:00)
[2019-03-15] MEDS ORDERED: NORVASC PO SCH (10:00)
[2019-03-15] MEDS ORDERED: CATAPRES PO SCH (10:00)
--- NOTE | 2019-03-15 11:21 | Consultation ---
History of Present Illness Consult date: 03/15/19 Requesting physician: FABIO BROWN Consult reason: chest pain History of present illness: The patient has a history of cardiomyopathy, chronic HFrEF, and CKD. Echocardiogram obtained during an admission in February 2017 revealed an ejection fraction of 35-40%. He claims that he was admitted to [facility] a week ago and was told that he needed to commence dialysis soon. He has been scheduled for AV fistula creation next week. 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 He also expressed some shortness of breath. He denies orthopnea. His troponin level is mildly elevated. Past History Past Medical History: diabetes, heart failure, hypertension, hyperlipidemia, renal failure Past Surgical History: No surgical history Social history: denies: smoking, alcohol abuse Family history: CAD Medications and Allergies Allergies Allergy/AdvReac Type Severity Reaction Status Date / Time lisinopril Allergy Rash Verified 03/09/17 07:34 Home Medications Medication Instructions Recorded Confirmed Last Taken Type Aspirin EC [Halfprin EC] 81 mg PO QDAY #30 tablet. 03/13/17 03/14/19 Unknown Rx AtorvaSTATin [Lipitor] 40 mg PO QHS #30 tablet 03/13/17 03/14/19 Unknown Rx amLODIPine [Norvasc] 10 mg PO QDAY #30 tablet 03/13/17 03/14/19 Unknown Rx cloNIDine [Catapres] 0.2 mg PO Q12HR #60 tablet 03/13/17 03/14/19 Unknown Rx glipiZIDE [Glucotrol] 5 mg PO QDAY #30 tablet 03/13/17 03/14/19 Unknown Rx hydrALAZINE [Apresoline TAB] 100 mg PO TID #90 tab 03/13/17 03/14/19 Unknown Rx Carvedilol [Coreg] 50 mg PO BID 03/14/19 03/14/19 Unknown History Active Meds: Active Medications Acetaminophen (Tylenol) 650 mg PO Q4H PRN PRN Reason: Pain MILD(1-3)/Fever >100.5/KATZ Amlodipine Besylate (Norvasc) 10 mg PO QDAY JUWAN Aspirin (Halfprin Ec) 81 mg PO QDAY JUWAN Atorvastatin Calcium (Lipitor) 40 mg PO QHS JUWAN Carvedilol (Coreg) 50 mg PO BID [facility] Clonidine HCl (Catapres) 0.2 mg PO Q12HR [facility] Dextrose (D50w (25gm) Syringe) 50 ml IV PRN PRN PRN Reason: Hypoglycemia Glipizide (Glucotrol) 5 mg PO QDDIAB [facility] Heparin Sodium (Porcine) (Heparin) 5,000 unit SUB-Q Q8HR [facility] Hydralazine HCl (Apresoline) 100 mg PO TID [facility] Hydralazine HCl (Apresoline) 10 mg IV Q4HR PRN PRN Reason: Blood Pressure Last Admin: 03/15/19 02:58 Dose: 10 mg Documented by: Insulin Human Lispro (Humalog) 0 unit SUB-Q [facility]; Protocol Morphine Sulfate (Morphine) 2 mg IV Q4H PRN PRN Reason: Pain, Moderate (4-6) Ondansetron HCl (Zofran) 4 mg IV Q8H PRN PRN Reason: Nausea And Vomiting Sodium Chloride (Sodium Chloride Flush Syringe 10 Ml) 10 ml IV BID [facility] Sodium Chloride (Sodium Chloride Flush Syringe 10 Ml) 10 ml IV PRN PRN PRN Reason: LINE FLUSH Review of Systems Constitutional: no fever, no chills Ears, nose, mouth and throat: no ear pain, no ear discharge, no sore throat Cardiovascular: chest pain, shortness of breath, no orthopnea, no palpitations Respiratory: shortness of breath, no cough, no hemoptysis Gastrointestinal: nausea, no abdominal pain, no vomiting, no diarrhea, no constipation Genitourinary Male: no dysuria, no urinary frequency Rectal: no pain, no bleeding Musculoskeletal: no neck stiffness, no neck pain, no myalgias Integumentary: no rash, no pruritis Neurological: no weakness, no parathesias, no headaches Endocrine: no cold intolerance, no heat intolerance Hematologic/Lymphatic: no easy bruising, no easy bleeding Allergic/Immunologic: no urticaria, no wheezing Physical Examination Vital Signs Last Vital Signs Temp 97.9 F 03/15/19 08:53 Pulse 82 03/15/19 08:53 Resp 16 03/15/19 08:53 BP 141/84 03/15/19 08:53 Pulse Ox 96 03/15/19 08:53 General appearance: no acute distress HEENT: Positive: EOMI, Normocephaly, Mucus Membranes Moist Neck: Positive: neck supple, trachea midline Cardiac: Positive: Reg Rate and Rhythm, S1/S2 Lungs: Positive: clear to auscultation Neuro: Positive: Grossly Intact Abdomen: Positive: Soft, Active Bowel Sounds. Negative: Tender Skin: Positive: Clear. Negative: Rash Musculoskeletal: Normal Range of Motion Extremities: Present: normal. Absent: edema Results 03/14/19 20:03 03/14/19 20:03 Cardiac Enzymes 03/14/19 03/14/19 Range/Units 20:03 20:03 AST 11 (5-40) units/L CK-MB (CK-2) 3.1 (0.0-4.0) ng/mL CBC 03/14/19 Range/Units 20:03 WBC 4.5 (4.5-11.0) K/mm3 RBC 4.15 (3.65-5.03) M/mm3 Hgb 11.3 L (11.8-15.2) gm/dl Hct 33.9 L (35.5-45.6) % Plt Count 161 (140-440) K/mm3 Lymph # 0.8 L (1.2-5.4) K/mm3 [place] # 0.5 (0.0-0.8) K/mm3 Eos # 0.1 (0.0-0.4) K/mm3 Baso # 0.1 (0.0-0.1) K/mm3 Comprehensive Metabolic Panel 03/14/19 Range/Units 20:03 Sodium 141 (137-145) mmol/L Potassium 4.0 (3.6-5.0) mmol/L Chloride 98.9 (98-107) mmol/L Carbon Dioxide 24 (22-30) mmol/L BUN 76 H (9-20) mg/dL Creatinine 9.7 H (0.8-1.5) mg/dL Glucose 71 L (75-100) mg/dL Calcium 8.7 (8.4-10.2) mg/dL AST 11 (5-40) units/L ALT 8 (7-56) units/L Alkaline Phosphatase 78 (35-129) units/L Total Protein 7.3 (6.3-8.2) g/dL Albumin 4.1 (3.9-5) g/dL - Imaging and Cardiology EKG: image reviewed EKG interpretations - Telemetry EKG Rhythm: Sinus Rhythm Chamber hypertrophy or enlargement: left ventricular hypertro Repolarization changes or abnormalities: ST or T wave suggestive of ischemia Assessment and Plan Schedule Lexiscan stress test with nuclear imaging. Optimize antihypertensive regimen. Further recommendations will depend on stress test findings. - Patient Problems (1) Chest pain Current Visit: Yes Status: Acute (2) Elevated troponin Current Visit: Yes Status: Acute (3) Hypertension Current Visit: Yes Status: Chronic Qualifiers: Hypertension type: essential hypertension Qualified Code(s): I10 - Essent ial (primary) hypertension (4) Cardiomyopathy Current Visit: Yes Status: Chronic (5) Chronic HFrEF (heart failure with reduced ejection fraction) Current Visit: Yes Status: Chronic (6) CKD (chronic kidney disease) Current Visit: Yes Status: Chronic Qualifiers: Chronic kidney disease stage: stage 4 (severe) Qualified Code(s): N18.4 - Chronic kidney disease, stage 4 (severe) (7) Diabetes mellitus Current Visit: Yes Status: Chronic Qualifiers: Diabetes mellitus type: type 2 Diabetes mellitus complication status: with other specified complication
[2019-03-15 13:29] VITALS: BP 183/111
--- NOTE | 2019-03-15 13:48 | Event Note ---
Date: 03/15/19 S/p lexiscan MPI stress test this AM which was negative for significant ischemia, EF 34%. Currently stable cardiac status. Pt may discharge from ca rdiology standpoint. Recommend follow up in our office with Dr. Sandhu within 1-2 weeks of hospital discharge ([phone]). Todd ADKINS NP / DR. STRAUSS
[2019-03-15] MEDS ORDERED: HEPARIN SUB-Q SCH (14:00)
--- NOTE | 2019-03-15 15:23 | Consultation ---
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 CP was associated with gen eralized weakness, muscle spasms. in ER patient was found to have mild troponin elevation at 0.09x 2, and was admitted for further cardiac work up. Labs also showed significantly elevated BUN/Cr at 76/9.7mg/dl for which renal consult is requested. Pt states that he was referred to vascular surgery for get AV graft/fistula placed, given his advanced CKD. he was recently seen at [facility] where he was treated for hyperkalemia and discharged about 5 days ago. pt otherwise denies nausea, vomiting, dysuria, still making significant amount of urine, denies abd pain, diarrhea, blurry vision, rash. denies recent NSAIDs use or IV contrast exposure. Past History Past Medical History: diabetes, heart failure, hypertension, hyperlipidemia, renal failure Past Surgical History: No surgical history Social history: denies: smoking, alcohol abuse Family history: CAD Medications and Allergies Allergies Allergy/AdvReac Type Severity Reaction Status Date / Time lisinopril Allergy Rash Verified 03/09/17 07:34 Home Medications Medication Instructions Recorded Confirmed Last Taken Type Aspirin EC [Halfprin EC] 81 mg PO QDAY #30 tablet. 03/13/17 03/14/19 Unknown Rx AtorvaSTATin [Lipitor] 40 mg PO QHS #30 tablet 03/13/17 03/14/19 Unknown Rx amLODIPine [Norvasc] 10 mg PO QDAY #30 tablet 03/13/17 03/14/19 Unknown Rx cloNIDine [Catapres] 0.2 mg PO Q12HR #60 tablet 03/13/17 03/14/19 Unknown Rx glipiZIDE [Glucotrol] 5 mg PO QDAY #30 tablet 03/13/17 03/14/19 Unknown Rx hydrALAZINE [Apresoline TAB] 100 mg PO TID #90 tab 03/13/17 03/14/19 Unknown Rx Carvedilol [Coreg] 50 mg PO BID 03/14/19 03/14/19 Unknown History Active Meds: Active Medications Acetaminophen (Tylenol) 650 mg PO Q4H PRN PRN Reason: Pain MILD(1-3)/Fever >100.5/KATZ Amlodipine Besylate (Norvasc) 10 mg PO QDAY REPLACED BY [facility] Last Admin: 03/15/19 12:00 Dose: 10 mg Documented by: Aspirin (Halfprin Ec) 81 mg PO QDAY REPLACED BY [facility] Last Admin: 03/15/19 12:00 Dose: 81 mg Documented by: Atorvastatin Calcium (Lipitor) 40 mg PO QHS REPLACED BY [facility] Carvedilol (Coreg) 50 mg PO BID REPLACED BY [facility] Last Admin: 03/15/19 12:00 Dose: 50 mg Documented by: Clonidine HCl (Catapres) 0.2 mg PO Q12HR REPLACED BY [facility] Last Admin: 03/15/19 12:00 Dose: 0.2 mg Documented by: Dextrose (D50w (25gm) Syringe) 50 ml IV PRN PRN PRN Reason: Hypoglycemia Glipizide (Glucotrol) 5 mg PO QDDIAB REPLACED BY [facility] Last Admin: 03/15/19 08:00 Dose: 5 mg Documented by: Heparin Sodium (Porcine) (Heparin) 5,000 unit SUB-Q Q8HR REPLACED BY [facility] Last Admin: 03/15/19 12:15 Dose: 5,000 unit Documented by: Hydralazine HCl (Apresoline) 100 mg PO TID REPLACED BY [facility] Last Admin: 03/15/19 13:20 Dose: 100 mg Documented by: Hydralazine HCl (Apresoline) 10 mg IV Q4HR PRN PRN Reason: Blood Pressure Last Admin: 03/15/19 02:58 Dose: 10 mg Documented by: Insulin Human Lispro (Humalog) 0 unit SUB-Q [facility]; Protocol Last Admin: 03/15/19 12:00 Dose: Not Given Documented by: Morphine Sulfate (Morphine) 2 mg IV Q4H PRN PRN Reason: Pain, Moderate (4-6) Ondansetron HCl (Zofran) 4 mg IV Q8H PRN PRN Reason: Nausea And Vomiting Sodium Chloride (Sodium Chloride Flush Syringe 10 Ml) 10 ml IV BID REPLACED BY [facility] Last Admin: 03/15/19 12:00 Dose: 10 ml Documented by: Sodium Chloride (Sodium Chloride Flush Syringe 10 Ml) 10 ml IV PRN PRN PRN Reason: LINE FLUSH Review of Systems All systems: negative Constitutional: weakness Cardiovascular: chest pain, shortness of breath, dyspnea on exertion Exam - Vital Signs Vital signs: Vital Signs Temp Pulse Resp BP Pulse Ox 98.1 F 80 18 167/96 98 03/14/19 19:56 03/14/19 19:56 03/14/19 19:56 03/14/19 19:56 03/14/19 19:56 - General Appearance General appearance: well-developed, well-nourished, appears stated age EENT: ATNC, PERRL, mucous membranes moist Neck: Present: neck supple Respiratory: Clear to Ascultation Heart: regular, S1S2 Gastrointestinal: Present: normoactive bowel sounds, obese Integumentary: no rash, other (no edema ) Neurologic: no focal deficit, alert and oriented x3, strength 5/5, CN 3-12 intact Psychiatric: mood/affect appropriate, cooperative Results - Lab Results 03/14/19 20:03 03/14/19 20:03 Most recent lab results Calcium 8.7 mg/dL (8.4-10.2) 03/14/19 20:03 Laboratory Tests 03/14/19 03/14/19 03/14/19 20:03 20:03 20:03 Hemoglobin A1c Lactic Acid 0.60 L Calcium 8.7 Total Bilirubin 0.80 AST 11 ALT 8 Alkaline Phosphatase 78 Total Creatine Kinase 252 H CK-MB (CK-2) 3.1 CK-MB (CK-2) Rel Index 1.2 Troponin T 0.097 H Total Protein 7.3 Albumin 4.1 Albumin/Globulin Ratio 1.3 Urine Color Urine Turbidity Urine pH Ur Specific [place] Urine Protein Urine Glucose (UA) Urine Ketones Urine Blood Urine Nitrite Urine Bilirubin Urine Urobilinogen Ur Leukocyte Esterase Urine WBC (Auto) Urine RBC (Auto) U Epithel Cells (Auto) Granular Casts Urine Mucus 03/14/19 03/14/19 03/15/19 20:18 23:44 06:41 Hemoglobin A1c 6.1 H Lactic Acid Calcium Total Bilirubin AST ALT Alkaline Phosphatase Total Creatine Kinase CK-MB (CK-2) CK-MB (CK-2) Rel Index Troponin T 0.096 H Total Protein Albumin Albumin/Globulin Ratio Urine Color Yellow Urine Turbidity Clear Urine pH 6.0 Ur Specific [place] 1.013 Urine Protein >500 Urine Glucose (UA) Neg Urine Ketones Neg Urine Blood Neg Urine Nitrite Neg Urine Bilirubin Neg Urine Urobilinogen < 2.0 Ur Leukocyte Esterase Sm Urine WBC (Auto) 26.0 H Urine RBC (Auto) 4.0 U Epithel Cells (Auto) 1.0 Granular Casts 2 Urine Mucus Few Assessment and Plan - Patient Problems (1) Acute chest pain Current Visit: Yes Status: Acute Plan to address problem: work up as per cardiology, s/p stress test. 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 pt with advanced CKD with eGFR < 10mls/min, and is being currently prepared for future HD. currently patient is without acute uremic symptoms, electrolyte imbalance, fluid overload or met acidosis, no emergent indication for renal replacement at present. However if patient requires further cardiac evaluation with cardiac cath and will receive IV contrast pt will probably need to be initiated on HD sooner than later. risks and benefits of HD discussed with patient, he understands risks of hyperkalemia/fluid overload with subsequent cardiac complication, met acidosis if he does not receive HD soon, however given lack of symptoms at present he wishes to proceed with outpatient AVF placement and f/u with his global supply chain director at [place]. avoid nephrotoxins, NSAIDs, IV contrast. will monitor lytes, renal parameters and make further recommendations. (3) Hypertensive chronic kidney disease with stage 5 chronic kidney disease or end stage renal disease Current Visit: Yes Status: Acute Plan to address problem: monitor BP on current meds (4) Chronic HFrEF (heart failure with reduced ejection fraction) Current Visit: Yes Status: Chronic Plan to address problem: follow cardiology recs (5) Type 2 diabetes mellitus with diabetic chronic kidney disease Current Visit: Yes Status: Acute Plan to address problem: glucose control as per primary attending
--- NOTE | 2019-03-15 17:36 | Discharge Summary ---
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 * EKG shows bigeminy * Labs reveal very mild anemia with hemoglobin of 11, even of 76 and creatinine of 9.7. Potassium is normal at 4. CK is 252. Troponin is 0.097. UA shows 26 cells * cxr neg * UA reviewed, patient has 26 cells which is most likely sediments given advanced renal failure. 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 [facility] Hypertensive chronic kidney disease with stage 5 Type 2 diabetes mellitus with diabetic chronic kidney disease Patient does not want to initiate HD at this time Disposition: DC TO HOME OR SELFCARE Time spent for discharge: 31 minutes Core Measure Documentation - Palliative Care Palliative Care/ Comfort Measures: Not Applicable - Core Measures Any of the following diagnoses?: none - VTE Discharge Requirements Deep Vein Thrombosis/Pulmonary Embolism Present on Admission: No Has pt received <5 days of overlap therapy or INR<2.0: No Anticoagulant overlap therapy prescribed at discharge: No Contraindication No Overlap Therapy order at DC: Not Indicated Exam - Physical Exam Narrative exam: Gen: WDWN, NAD, Awake, Alert, Orientated HEENT: NCAT, EOMI, PERRL, OP Clear Neck: supple, no adenopathy, no thyromegaly, no JVD CVS/Heart: RRR, normal S1S2, pulses present bilaterally Chest/Lungs: CTA B, Symmetrical chest expansion, good air entry bilaterally GI/Abdomen: soft, NTND, good bowel sounds, no guarding or rebound /Bladder: no suprapubic tenderness, no CVA or paraspinal tenderness Extermity/Skin: no c/c/e, no obvious rash MSK: FROM x 4 Neuro: CN 2-12 grossly intact, no new focal deficits Psych: calm - Constitutional Vitals: Temp Pulse Resp BP Pulse Ox 97.9 F 82 16 183/111 96 03/15/19 08:53 03/15/19 12:00 03/15/19 08:53 03/15/19 13:15 03/15/19 08:53 Plan Activity: other (no strenous activity unless cleared by PCP) Diet: low salt, renal [facility]Primary Care [facility] - 3-5 Days NANCY JACOBS MD [Staff Physician] - 7 Days ALEXANDR NOVOA MD [Staff Physician] - 7 Days Prescriptions: amLODIPine [Norvasc] 10 mg PO QDAY #30 tablet
--- NOTE | 2019-03-15 20:07 | Treadmill Report ---
LEXISCAN STRESS TEST REPORT REASON FOR STUDY: Chest pain. STRESS TEST PROTOCOL: The patient received 0.4 mg of Lexiscan intravenously over 10 seconds. Technetium-99m Tetrofosmin was subsequently injected. Baseline ECG, normal sinus rhythm. T-wave abnormality. Consider inferior ischemia. Lexiscan ECG, no significant change from baseline. No chest pain. No arrhythmias. IMPRESSION: Nondiagnostic due to baseline ECG abnormalities. Nuclear imaging report to follow. [facility]# [id number] NICCI/NTS
--- NOTE | 2019-03-15 23:19 | Treadmill Report ---
THALLIUM REPORT REASON FOR STUDY: Chest pain. IMAGING PROTOCOL: The patient received 10 mCi of technetium-99m Tetrofosmin and 28 mCi of technetium-99m Tetrofosmin for stress imaging. Imaging for all procedures was completed 30-90 minutes following the initial injection of Technetium 99m Tetrofosmin. SPECT imaging in the 180 degree arc was performed in the right anterior oblique projection. Computerized reconstruction of the images was performed for analysis. NUCLEAR IMAGING RESULTS: Technically limited study due to soft tissue attenuation artifact. Normal left ventricular cavity size with no change from stress to rest. Distribution of radionuclide within the left ventricle revealed a small area of photo-induction involving the anteroseptal wall. The degree of photo-induction is mild. Rest imaging showed complete improvement in this defect. In addition, there is a small to medium size area of photo-induction involving the inferior wall. The degree of photo-induction is moderate. Rest imaging does not show any significant improvement in this defect. Gated SPECT imaging revealed moderate global left ventricular hypokinesis. The calculated left ventricular ejection fraction is 34%. IMPRESSION: Technically limited study. Small reversible anteroseptal defect. Small to medium sized fixed inferior defect. Moderate global left ventricular hypokinesis. EF 34%. These findings suggest minimal reversible ischemia in the left anterior descending coronary artery territory. There is also suggestion of prior infarction in the right coronary artery territory. In addition, a cardiomyopathic process may be present in this patient. JOB# [id number] NICCI/JULES
== END 2019-03-15 19:09 | disposition home or self-care (01) ==
LOC: ED 19:22 → 4A 23:36
PROVIDERS: ADMIT Internal Medicine; ATTEND Internal Medicine
DX: R07.89 Other chest pain (principal); I13.2 Hypertensive heart and chronic kidney disease with heart failure and with stage 5 chronic kidney disease, or end stage renal disease; N18.5 Chronic kidney disease, stage 5; I50.41 Acute combined systolic (congestive) and diastolic (congestive) heart failure; E11.22 Type 2 diabetes mellitus with diabetic chronic kidney disease
CPT/HCPCS: 36415; 71046; 78452; 80053; 81001; 82140; 82550; 82553; 82962; 83036; 84484; 85025; 85379; 87086; 87116; 93005; 93010; 93017; 93306; 96372; 96374; 99284; 99406; A9502; G0378; J0360; J1644; J2785

== ENCOUNTER 2021-02-24 09:47 | Emergency (ER) | payer MEDICARE ==
[2021-02-24 10:20] VITALS: BP 179/96
--- NOTE | 2021-02-24 11:05 | XRay Report ---
XR hand 3+V RT, XR wrist 3+V RT INDICATION / CLINICAL INFORMATION: hand injury. COMPARISON: None available. FINDINGS: Right hand: No acute fracture or malalignment. No significant arthritis. Soft tissues are unremarkabl e. Right wrist: No fracture or malalignment. No significant arthritis. Soft tissues are unremarkable. IMPRESSION: No acute abnormality of the right hand or wrist. Signer Name: Raj Ng MD Signed: 02/24/2021 11:00 AM Workstation Name: [id number]
[2021-02-24] MEDS ORDERED: traMADol 50 MG TAB PO ONE (11:19)
--- NOTE | 2021-02-24 11:21 | Emergency Department Report ---
ED Upper Extremity Inj HPI - General Chief Complaint: Extremity Injury, Upper Stated Complaint: RT HAND INJURY Time Seen by Provider: 02/24/21 11:17 Source: patient Mode of arrival: Ambulatory Limitations: No Limitations - History of Present Illness Initial Comments: Patient is a 30-year-old -[place] male that comes to the ER today with right hand pain after punching a wall last night. He has swelling of the right hand. He denies any other injury. He is able to move distal fingers. He has good ulnar and radial pulses. There is no bleeding abrasion or laceration. X-ray will be obtained to rule out boxer's fracture Complaint: Injury to:: right -: Sudden Other Extremity Injury: Wrist: Left Other Injuries: none Handedness: right Place: home Improves With: none Worsens With: movement of extremity Context: direct blow Associated Symptoms: denies other symptoms - Related Data Home Medications Medication Instructions Recorded Confirmed Last Taken carvediloL [Coreg] 50 mg PO BID 03/14/19 03/14/19 Unknown Previous Rx's Medication Instructions Recorded Last Taken Type Aspirin EC [Halfprin EC] 81 mg PO QDAY #30 tablet.dr 03/13/17 Unknown Rx AtorvaSTATin [Lipitor] 40 mg PO QHS #30 tablet 03/13/17 Unknown Rx cloNIDine [Catapres] 0.2 mg PO Q12HR #60 tablet 03/13/17 Unknown Rx hydrALAZINE [Apresoline TAB] 100 mg PO TID #90 tab 03/13/17 Unknown Rx amLODIPine 10 mg PO QDAY #30 tablet 03/15/19 Unknown Rx glipiZIDE [Glucotrol] 5 mg PO QDAY #30 tablet 03/15/19 Unknown Rx Ibuprofen [Motrin] 800 mg PO Q8HR PRN #30 tablet 02/24/21 Unknown Rx Allergies Allergy/AdvReac Type Severity Reaction Status Date / Time lisinopril Allergy Rash Verified 03/09/17 07:34 ED Review of Systems ROS: Stated complaint: RT HAND INJURY Other details as noted in HPI Comment: All other systems reviewed and negative ED Past Medical Hx - Past Medical History Previous Medical History?: Yes Hx Hypertension: Yes Hx Congestive Heart Failure: Yes Hx Diabetes: Yes Hx Renal Disease: Yes Hx Asthma: No Hx COPD: No - Surgical History Past Surgical History?: No - Family History Family history: no significant - Social History Smoking Status: Never Smoker Substance Use Type: Alcohol - Medications Home Medications: Home Medications Medication Instructions Recorded Confirmed Last Taken Type Aspirin EC [Halfprin EC] 81 mg PO QDAY #30 tablet. 03/13/17 03/14/19 Unknown Rx AtorvaSTATin [Lipitor] 40 mg PO QHS #30 tablet 03/13/17 03/14/19 Unknown Rx cloNIDine [Catapres] 0.2 mg PO Q12HR #60 tablet 03/13/17 03/14/19 Unknown Rx hydrALAZINE [Apresoline TAB] 100 mg PO TID #90 tab 03/13/17 03/14/19 Unknown Rx carvediloL [Coreg] 50 mg PO BID 03/14/19 03/14/19 Unknown History amLODIPine 10 mg PO QDAY #30 tablet 03/15/19 Unknown Rx glipiZIDE [Glucotrol] 5 mg PO QDAY #30 tablet 03/15/19 03/14/19 Unknown Rx Ibuprofen [Motrin] 800 mg PO Q8HR PRN #30 tablet 02/24/21 Unknown Rx ED Physical Exam - General Limitations: No Limitations General appearance: alert, in no apparent distress - Head Head exam: Present: atraumatic, normocephalic - Eye Eye exam: Present: normal appearance - ENT ENT exam: Present: mucous membranes moist - Neck Neck exam: Present: normal inspection - Respiratory Respiratory exam: Present: normal lung sounds bilaterally. Absent: respiratory distress - Cardiovascular Cardiovascular Exam: Present: regular rate, normal rhythm. Absent: systolic murmur, diastolic murmur, rubs, gallop - GI/Abdominal GI/Abdominal exam: Present: soft, normal bowel sounds - Rectal Rectal exam: Present: deferred - Extremities Exam Extremities exam: Present: normal inspection - Expanded Upper Extremity Exam Right Elbow exam: Present: normal inspection Forearm Wrist exam: Present: normal inspection Hand Wrist exam: Present: tenderness, swelling, erythema - Back Exam Back exam: Present: normal inspection - Neurological Exam Neurological exam: Present: alert, oriented X3 - Psychiatric Psychiatric exam: Present: normal affect, normal mood - Skin Skin exam: Present: warm, dry, intact, normal color. Absent: rash ED Course Vital Signs 02/24/21 10:19 Temperature 98.3 F Pulse Rate 88 Respiratory 18 Rate Blood Pressure 179/96 O2 Sat by Pulse 96 Oximetry ED Medical Decision Making - Radiology Data Radiology results: report reviewed, image reviewed neg fx - Medical Decision Making No fracture noted on x-ray. Patient medicated for pain and placed in an Jerry bandage. Patient being discharged home with rice therapy and Motrin for pain. Of asked the patient to see orthopedics next week for repeat imaging if his pain persist. He verbalizes understanding. Vital Signs 02/24/21 10:19 Temperature 98.3 F Pulse Rate 88 Respiratory 18 Rate Blood Pressure 179/96 O2 Sat by Pulse 96 Oximetry Patient remains neurovascularly intact on discharge. - Differential Diagnosis ro fx Critical care attestation.: If time is entered above; I have spent that time in minutes in the direct care of this critically ill patient, excluding procedure time. ED Disposition Clinical Impression: Contusion, hand Disposition: DC-01 TO HOME OR SELFCARE Is pt being admited?: No Does the pt Need Aspirin: No Condition: Stable Additional Instructions: rest ice elevate jerry for comfort med as ordered today for pain take with food follow up with ortho next week if pain persists referral below Prescriptions: Ibuprofen [Motrin] 800 mg PO Q8HR PRN #30 tablet PRN Reason: Pain, Moderate (4-6) Referrals: ACE RO MD [Staff Physician] - 3-5 Days Time of Disposition: 11:19
== END 2021-02-24 11:21 | disposition home or self-care (01) ==
LOC: ED 09:47
DX: S60.221A Contusion of right hand, initial encounter (principal); I11.0 Hypertensive heart disease with heart failure; I50.9 Heart failure, unspecified; E11.9 Type 2 diabetes mellitus without complications; Z79.899 Other long term (current) drug therapy; X58.XXXA Exposure to other specified factors, initial encounter; Y93.89 Activity, other specified; Y92.009 Unspecified place in unspecified non-institutional (private) residence as the place of occurrence of the external cause; Y99.8 Other external cause status